=== PATIENT | female | born 1945 | race Asian ===

== ENCOUNTER 2025-05-08 10:48 | Emergency (ER) | payer MEDICARE, MEDICAID, SELFPAY ==
--- NOTE | 2025-05-08 11:07 | EDNOTE_ITS ---
<Statement entered by Mahi Whatley MD - 05/24/25 06:33> I, Mahi Whatley MD, have reviewed the history, exam, and assessment of the patient. I have evaluated the patient independently and agree with the plan of care documented by [ ]. All diagnostic studies were reviewed and discussed. I confirm the diagnosis as documented by the Resident. I was present during the Medical Decision Making for this patient. The patient's plan of care was created between myself and the Resident and consistent with our discussion of the patient's case. ED General RME/HPI General Chief complaint: Hip Injury/Pain Stated complaint: L HIP PAIN S/P FALL 1 WEEK AGO Time Seen by Provider: 05/08/25 11:07 Arrival date/time: 05/08/25 10:48 RME / HPI RME / HPI narrative: 80-year-old female with no relevant past medical history comes into the ED with chief complaint of left hip pain. Patient was accompanied by her daughter stated that the patient usually walks alone from her home to the store multiple times a day, but that around 2 weeks ago she did have a fall in the street and 1 more in the house which she did see as patient landed on her buttocks. Since then patient has been using a cane as it has been more difficult for her to walk due to the pain. Patient has also been walking last instances. Denies any chest pain, nausea, vomiting, changes in bowel movement, burning sensation in urination, or any loss of consciousness. Denies any smoking, drugs, alcohol Related Data Home Medications ?Medication ?Instructions ?Recorded ?Confirmed erythromycin 5 mg/gram (0.5 %) eye 1 appl Right eye VA N PRN ITCHING 05/22/17 ointment #0 ea latanoprost 0.005 % eye drops 1 drp Left eye HS #2.5 m L 05/22/17 (Xalatan) naproxen sodium 220 mg tablet 220 mg PO BIDWM #0 tabs 05/22/17 (Aleve) Previous Rx's ?Medication ?Instructions ?Recorded sulfamethoxazole 800 1 tab PO Q12H #14 tabs 11/04 mg-trimethoprim 160 mg tablet (Bactrim DS) hydrocodone 2.5 mg-acetaminophen 1 tab PO Q8H PRN pain #12 tabs 05/08/25 325 mg tablet Allergies Allergy/AdvReac Type Severity Reaction Status Date / Time NKA* Allergy Uncoded 05/08/25 10:49 Review of Systems Review of Systems Systems Reviewed: All systems reviewed, normal except as documented Past Medical History Social History SMOKING STATUS: Never smoker Travel History EBOLA RISK: No ED Exam Narrative Physical exam: Gen: A&O X 2 (not to time), NAD, frail/thin HEENT: NCAT, EOMI, 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 External ears normal. No rhinorrhea. Moist mucous membranes. R mandibular region mass measuring around 8cm. Neck: Supple, full range of motion, no observable masses, No meningeal sign. Lungs: No Respiratory distress, clear bilateral. CV: RRR, no murmurs. Abdomen: Soft, nondistended, No rebound tenderness. MSK: No joint swelling, no redness, peripheral pulses presents, Pain in L hip with active or passive motion Skin: No rashes, petechiae, lesions. Neuro: No focal neurological deficits appreciated, sensory and motor intact. Psych: Cooperative, appropriate mood and effect. Course Quality Measures none Orders Category Date Time Status CT pelvis wo con Stat Exams 05/08/25 11:55 Completed XR ankle LT 2V Stat Exams 05/08/25 12:17 Completed XR knee LT 3V Stat Exams 05/08/25 12:17 Completed CBC [CBC] Stat Lab 05/08/25 12:50 Completed CMP [Comprehensive Metabolic Panel] Stat Lab 05/08/25 12:50 Completed Morphine Inj Med 05/08/25 12:21 Discontinued 1 mg IM X1 ONE Vital Signs Vital signs: Vital Signs Temperature 98.7 F 05/08/25 11:29 Pulse Rate 88 05/08/25 11:29 Respiratory Rate 16 05/08/25 11:29 Blood Pressure 132/65 H 05/08/25 11:29 Pulse Oximetry (%) 97 05/08/25 11:29 Oxygen Delivery Method Room Air 05/08/25 11:29 Discharge Plan Plan Patient Disposition: HOME (Self Care) Prescriptions/Referrals Prescriptions/Med Rec: New hydrocodone-acetaminophen 2.5-325 mg tablet 1 tab PO Q8H MDD 3 PRN (Reason: pain) Qty: 12 0RF No Action latanoprost [Xalatan] 50 DROP/BTL drops 1 drp Left eye HS Qty: 2.5 erythromycin 1 GM ointment 1 appl Right eye PRN PRN (Reason: ITCHING) Qty: 0 naproxen sodium [Aleve] 220 MG tablet 220 mg PO BIDWM Qty: 0 sulfamethoxazole-trimethoprim [Bactrim DS] 800-160 mg tablet 1 tab PO Q12H Qty: 14 0RF Referrals: Enio Pastor MD [Primary Care Provider] - In 1 week Problem List Clinical Impression: Hip mass, Hip pain Patient/Caregiver Discharge Instructions Other Activity Instructions:: Follow-up with primary care physician within 2 to 3 days Recommend outpatient workup for tumor seen on pelvis CT at the left iliac bone. Would recommend outpatient follow-up with drying can worker/oncologist within the next week for the next course of action of the tumor mass seen in the CT of the pelvis Have prescribed [place] 2.5/325mg every 8 hours as needed for pain for the next 3 to 4 days. Would recommend using a cane to walk while you go and see primary care physician and oncologist. Come back to the ER if symptoms persist or worsen. Education Materials: Understanding the Pain Response, Communicating About Pain, ED Pain, Acute, Uncertain Cause Print Language: Indonesian Stand Alone Forms: Suzie Award Info., Patient Portal Info Letter MDM Narrative MDM hospital course: Patient was seen and evaluated upon arrival by myself. Diagnostic imaging and labs were ordered. Gave 1mg Morphine due to pain. Patient's pelvis CT showed the tumor mass at the left iliac bone with metastatic disease and Xrays did not show fractures or dislocations. Patient's daughter stated that patient was being worked outpatient for a mass that she has on the right submandibular region. Again explained to patient's daughter the need to follow-up outpatient with drying can worker oncologist and and that they would need a referral from the outpatient primary care physician. Patient's daughter understood the plan and agreed. Case disclosed with Attending Dr. Phylicia Dumont PGY2 Disclaimer: Even though this this note was dictated by speech recognition and even though it was carefully revised there may still be minor errors in pulverizing and sifting operator due to voice recognition software. Medication Administration(s) Medication Administration History Discontinued Medications Morphine Sulfate (Morphine Sulf Inj 10 Mg/Ml Vial) 1 mg IM X1 ONE Stop: 05/08/25 12:22 Last Admin: 05/08/25 13:17 Dose: 1 mg Documented By: DO
[2025-05-08 11:29] VITALS: BP 132/65; PULSE 88; RESP 16; TEMP 37.1; O2SAT 97
--- NOTE | 2025-05-08 11:55 | XR_ITS ---
Examination: CT pelvis without intravenous contrast. 2-D sagittal and coronal reconstructions. Date and time of exam:May 07, 2025, 12:57 PM Indications: Patient fell last week with injury to the pelvis, left hip pain. CTDI: vol (mGy) :3.36 DLP: (mGycm) : 93 Technique: Multiple 3 mm axial sections of the pelvis have been obtained with the 64 slice high resolution scanner. 2-D sagittal and coronal reconstructions. Low dose protocols were performed. One or more of the following dose reduction techniques were used; automated exposure control, adjustment of the mA and/or KV according to patient size, use of iterative reconstruction technique. 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
--- NOTE | 2025-05-08 12:17 | XR_ITS ---
Examination: Healed left ankle 2 views Technique : AP lateral left ankle 2 views Date and time: May 08, 2025, 12:32 PM Indications: Patient fell this morning ankle, ankle pain. Findings: No fracture or dislocation. Mild osteopenia. Impression: No fracture or dislocation.
--- NOTE | 2025-05-08 12:17 | XR_ITS ---
Examination: Knee, left 3 views Technique: AP oblique lateral left knee 3 views Date and time: May 08, 2025 1234 hrs. Indications: Patient fell this morning with injury to the knee, knee pain. Findings: Severe osteopenia. No fracture or dislocation. Impression: No fracture or dislocation.
[2025-05-08] MEDS: MORPHINE SULF INJ 10 MG/ML VIAL IM (13:17)
[2025-05-08 13:18] LABS: Basophils # (Auto) 0.0 Thou/mm3 (0.0-0.2); Basophils % (Auto) 0 % (0-2.5); Eosinophils # (Auto) 0.0 Thou/mm3 (0.0-0.5); Eosinophils % (Auto) 0 % (0-10); Hematocrit 32.4 % (36.0-46.0); Hemoglobin 10.8 g/dL (12.0-16.0); Immature Granulocytes Auto 0.04 Thou/mm3 (0.00-0.00); Lymphocytes # (Auto) 1.2 Thou/mm3 (1.0-4.8); Lymphocytes % (Auto) 17 % (10-50); Mean Corpuscular HGB Conc 33.3 g/dl (31.0-37.0); Mean Corpuscular Hemoglobin 26.2 pg (25.0-35.0); Mean Corpuscular Volume 79 fL (80-100); Monocytes # (Auto) 0.9 Thou/mm3 (0.0-0.8); Monocytes % (Auto) 13 % (0-12); Neutrophils # (Auto) 4.9 Thou/mm3 (1.8-7.7); Neutrophils % (Auto) 69 % (37-80); Nucleated Red Blood Cell # 0.00 Thou/mm3 (0.00-0.00); Nucleated Red Blood Cell % 0 /100 WBC (0); Platelet Count 323 Thou/mm3 (140-440); RDW Standard Deviation 45.1 fL (36.4-46.3); Red Blood Count 4.12 Miln/mm3 (4.00-5.20); White Blood Count 7.0 Thou/mm3 (3.6-11.0)
[2025-05-08 13:19] VITALS: BMI 18.1
[2025-05-08 14:05] LABS: Alanine Aminotransferase < 7 U/L (10-49); Albumin, Serum 3.5 gm/dL (3.4-4.8); Albumin/Globulin Ratio 1.3 (1.2-2.2); Alkaline Phosphatase 63 U/L (46-116); Anion Gap 17 (7-16); Aspartate Amino Transferase 25 U/L (0-34); BUN/Creatinine Ratio 23 Ratio (12-20); Bilirubin,Total 1.0 mg/dL (0.3-1.2); Blood Urea Nitrogen 21 mg/dL (9-23); Calcium 9.7 mg/dL (8.3-10.6); Calcium (Corrected) 10.1 mg/dL (8.5-10.1); Carbon Dioxide 22.4 mMol/L (20.0-31.0); Chloride 102 mMol/L (98-107); Creatinine (Component) 0.9 mg/dL (0.6-1.3); Estimated Creatinine Clearance 31.1 mL/min (>60); Globulin 2.7 gm/dL (2.3-3.5); Glucose 90 mg/dL (74-106); Osmolality,Calculated 284 (275-295); Potassium 3.2 mMol/L (3.4-5.1); Sodium 141 mMol/L (136-145); Total Protein 6.2 gm/dL (5.7-8.2); eGFR > 60 See Note
[2025-05-08 14:59] VITALS: BP 128/56; PULSE 75; RESP 13; O2SAT 95
== END 2025-05-08 15:03 | disposition home or self-care (01) ==
PROVIDERS: PCP Family Medicine
DX: S79.912A Unspecified injury of left hip, initial encounter (principal); S89.92XA Unspecified injury of left lower leg, initial encounter; S99.912A Unspecified injury of left ankle, initial encounter; W19.XXXA Unspecified fall, initial encounter; C79.51 Secondary malignant neoplasm of bone
CPT/HCPCS: 36415; 72192; 73562; 73600; 80053; 85025; 96372; 99283; J2270

== ENCOUNTER 2025-05-17 07:26 | Emergency (ER) | payer MEDICARE, MEDICAID, SELFPAY ==
--- NOTE | 2025-05-17 | XR_ITS ---
Examination: MRI thoracic spine, without intravenous contrast. MRI thoracic spine , with intravenous contrast. 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 Images obtained included T2 weighted fat suppressed sagittal sections, TR 3500, TE 46, T2 weighted coronal fat suppressed images, TR 3050, TE 84, T2-weighted transverse fat suppressed images, TR 30-60, TE 63, proton density transverse images, TR 4720, TE 46, and T1 weighted coronal images, TR 560, TE 13. Axial, sagittal and coronal images are obtained post intravenous injection 6 cc gadolinium. Findings: Kyphosis dorsal spine Severe osteopenia. Compression fractures T12 T8 T6, T5 T3, T2, T1 Enhancement on the postcontrast images at these levels The postcontrast images are degraded by patient motion However, enhancing epidural tumor is not demonstrated impinging upon the thoracic cord The fracture at T12 is acute or subacute as there is increased signal in this vertebral body on the precontrast images IMPRESSION: Osseous metastatic disease involving T1, T2, T3, T5, T6, T8, T12 with compression fractures However, no enhancing epidural tumor impinging upon the thoracic cord
[2025-05-17 07:27] VITALS: BMI 15.1
[2025-05-17 07:40] VITALS: BP 96/60; PULSE 68; RESP 18; TEMP 37; O2SAT 94
--- NOTE | 2025-05-17 07:58 | PD.EDRME ---
Rapid Medical Screening Exam RME Arrival date/time: 05/17/25 07:26 80-year-old female presents to the emergency room with a chief complaint of left-sided 10 out of 10 hip pain, decreased appetite, generalized fatigue that is progressively gotten worse. The patient is currently being worked up by her primary care provider for a metastatic mass that was found in her left hip. I have greeted and performed a focused initial assessment of this patient. A comprehensive ED assessment and evaluation of the patient, analysis of all test results, and completion of the medical decision making process will be conducted by additional ED providers. Chief Complaint: Hip Injury/Pain Time Seen by Provider: 05/17/25 07:41 Vital signs: Vital Signs Temperature 98.6 F 05/17/25 07:40 Pulse Rate 68 05/17/25 07:40 Respiratory Rate 18 05/17/25 07:40 Blood Pressure 96/60 05/17/25 07:40 Pulse Oximetry (%) 94 L 05/17/25 07:40 Oxygen Delivery Method Room Air 05/17/25 07:40 Vital signs reviewed by provider: Yes
[2025-05-17 09:10] LABS: Basophils # (Auto) 0.0 Thou/mm3 (0.0-0.2); Basophils % (Auto) 0 % (0-2.5); Eosinophils # (Auto) 0.0 Thou/mm3 (0.0-0.5); Eosinophils % (Auto) 0 % (0-10); Hematocrit 31.8 % (36.0-46.0); Hemoglobin 10.7 g/dL (12.0-16.0); Immature Granulocytes Auto 0.04 Thou/mm3 (0.00-0.00); Lymphocytes # (Auto) 0.5 Thou/mm3 (1.0-4.8); Lymphocytes % (Auto) 7 % (10-50); Mean Corpuscular HGB Conc 33.6 g/dl (31.0-37.0); Mean Corpuscular Hemoglobin 26.4 pg (25.0-35.0); Mean Corpuscular Volume 79 fL (80-100); Monocytes # (Auto) 1.0 Thou/mm3 (0.0-0.8); Monocytes % (Auto) 13 % (0-12); Neutrophils # (Auto) 5.9 Thou/mm3 (1.8-7.7); Neutrophils % (Auto) 79 % (37-80); Nucleated Red Blood Cell # 0.00 Thou/mm3 (0.00-0.00); Nucleated Red Blood Cell % 0 /100 WBC (0); Platelet Count 326 Thou/mm3 (140-440); RDW Standard Deviation 45.1 fL (36.4-46.3); Red Blood Count 4.05 Miln/mm3 (4.00-5.20); White Blood Count 7.5 Thou/mm3 (3.6-11.0)
[2025-05-17 09:16] LABS: Alanine Aminotransferase < 7 U/L (10-49); Albumin, Serum 3.0 gm/dL (3.4-4.8); Albumin/Globulin Ratio 1.0 (1.2-2.2); Alkaline Phosphatase 56 U/L (46-116); Anion Gap 15 (7-16); Aspartate Amino Transferase 22 U/L (0-34); BUN/Creatinine Ratio 16 Ratio (12-20); Bilirubin,Total 0.7 mg/dL (0.3-1.2); Blood Urea Nitrogen 18 mg/dL (9-23); Calcium 9.1 mg/dL (8.3-10.6); Calcium (Corrected) 9.9 mg/dL (8.5-10.1); Carbon Dioxide 24.2 mMol/L (20.0-31.0); Chloride 101 mMol/L (98-107); Creatinine (Component) 1.1 mg/dL (0.6-1.3); Estimated Creatinine Clearance 21.2 mL/min (>60); Globulin 2.9 gm/dL (2.3-3.5); Glucose 87 mg/dL (74-106); Osmolality,Calculated 280 (275-295); Sodium 140 mMol/L (136-145); Total Protein 5.9 gm/dL (5.7-8.2); eGFR 50 See Note
[2025-05-17 09:18] LABS: Potassium 2.5 mMol/L (3.4-5.1)
--- NOTE | 2025-05-17 09:19 | XR_ITS ---
Examination: CT abdomen with intravenous contrast CT pelvis with intravenous contrast 2-D coronal reconstructions 2-D sagittal reconstructions Date and time of exam:July 17, 2025, 1031 hours, comparison May 08, 2025 INDICATIONS: Generalized abdominal pain today. CTDI: vol (mGy) 5.84 DLP: (mGycm) 269 Technique: Multiple axial sections of the abdomen and pelvis have been obtained. 64 slice high-resolution scanner used. 3 mm axial sections have been obtained, post intravenous injection of 60 cc Isovue 370. 2-D sagittal, coronal reconstructions obtained. Low dose protocols were performed. One or more of the following dose reduction techniques were used; automated exposure control, adjustment of the mA and/or KV according to patient size, use of iterative reconstruction technique. Findings: Pneumonia left base with moderate left pleural fluid Mild enlargement cardiac contour. No focal liver or splenic lesions Gallbladder is distended, gallbladder wall appears mildly thickened Multiple areas of edema in both kidneys. Aortic calcification no aneurysmal dilatation. 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 Again noted large soft tissue mass destroying the left iliac bone, soft tissue tumor extending into the pelvis
--- NOTE | 2025-05-17 09:20 | XR_ITS ---
Examination: CT brain head without contrast. 2-D sagittal coronal reconstructions Date and time of exam:May 17, 2025, 1028 hours INDICATIONS: Generalized weakness today Comparison of July 11, 2023 CTDI: vol (mGy):43.7 DLP: (mGycm):756 Technique: Multiple CT axial sections of the brain have been obtained, 5 mm slice thickness. Contrast has not been administered. 2-D sagittal, coronal reconstructions have been obtained Low dose protocols were performed. One or more of the following dose reduction techniques were used; automated exposure control, adjustment of the mA and/or KV according to patient size, use of iterative reconstruction technique. Findings: No significant ventricular enlargement. Intra-axial or extra-axial hemorrhage density is not seen. No mass effect or midline shift Basal cisterns are not remarkable. Fourth ventricle is midline. Cranial vault intact. Impression: Negative for acute hemorrhage, mass effect or midline shift
--- NOTE | 2025-05-17 09:20 | EKG_ITS ---
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
--- NOTE | 2025-05-17 09:22 | PD.EDHIP ---
Lower Extremity Injury RME/HPI General Chief Complaint: Hip Injury/Pain Stated Complaint: L) HIP PAIN Time Seen by Provider: 05/17/25 07:41 Source: family Arrival date/time: 05/17/25 07:26 Mode of arrival: wheelchair Limitations: language barrier (Home Health Specialist used, daughter at bedside, ) RME / HPI RME / HPI Narrative: 05/17/25 07:26 80-year-old female presents to the emergency room with a chief complaint of left-sided 10 out of 10 hip pain, decreased appetite, generalized fatigue that is progressively gotten worse. The patient is currently being worked up by her primary care provider for a metastatic mass that was found in her left hip. I have greeted and performed a focused initial assessment of this patient. A comprehensive ED assessment and evaluation of the patient, analysis of all test results, and completion of the medical decision making process will be conducted by additional ED providers. 9:22a Dr. Branch I spoke with patient's daughter at bedside, states that since the fall patient has been very weak, previously was very active and now does not ambulate very much. Previously ambulated without a cane. Has not had a biopsy of her left hip does not have any medical problems, no medications, no allergies to medications. No recent travel sick contacts. No fever vomiting or abdominal pain patient speaks Laotian, patient. Concented for daughter to be compliance engineer products. Related Data Previous Rx's ?Medication ?Instructions ?Recorded hydrocodone 10 mg-acetaminophen 1 tab PO BID PRN pain #20 tabs 05/23/25 325 mg tablet Allergies Allergy/AdvReac Type Severity Reaction Status Date / Time No Known Allergies Allergy Verified 05/17/25 07:30 Review of Systems Review of Systems Systems Reviewed: All systems reviewed, normal except as documented Past Medical History Past Medical History CARDIAC: Negative Cardiac Disorders or Congestive Heart Failure RESPIRATORY: Negative Chronic Obstructive Pulmonary Disease (COPD) or Asthma GENITOURINARY: Negative Renal Disease ENDOCRINE: Negative Diabetes Mellitus Type 1 or Diabetes Mellitus Type 2 HEMATOLOGIC: Negative Sickle Cell Disease Social History SMOKING STATUS: Former smoker ED Exam General Limitations: Present language barrier (Home Health Specialist used, daughter at bedside, ) General appearance: Present other (Globally weak) Head Head exam: Present atraumatic, normocephalic and normal inspection Eye Eye exam: Present other (Right eye opacified) ENT ENT exam: Present other (Dry mucous membranes) Neck Neck exam: Present normal inspection Chest Chest inspection: Present symmetric chest wall rise Respiratory Respiratory exam: Present normal lung sounds bilaterally; Absent respiratory distress Cardiovascular Cardiovascular exam: Present regular rate and normal rhythm Abdominal Exam Abdominal exam: Present soft; Absent distention, tenderness or guarding Extremities Exam Extremities exam: Present other (Weak in bilateral lower extremities as well as bilateral upper extremities, swelling appreciated at patient's left hip, no surrounding erythema fluctuance or crepitus) Neurological Exam Neurological exam: Present alert Course Quality Measures none Orders Category Date Time Status Bedside COVID-19 Antigen Test NOW Care 05/17/25 09:16 Completed Bedside Influenza A&B Antigen Test NOW Care 05/17/25 09:[address] Screening NOW Care 05/17/25 09:19 Completed EKG (ED ONLY) *Do not use* NOW Care 05/17/25 09:20 Completed Insert [Insert IV] STAT Care 05/17/25 07:57 Completed MRI Screening NOW Care 05/17/25 11:50 Completed MRI Screening NOW Care 05/17/25 17:[address] abdomen pelvis w con Stat Exams 05/17/25 09:[address] head/brain wo con Stat Exams 05/17/25 09:20 Completed EKG (ED Only) Stat Exams 05/17/25 09:20 Draft MR thoracic spine wo/w con Stat Exams 05/17/25 Completed US abdomen limited Stat Exams 05/17/25 11:49 Completed Blood Culture (Lab) Stat Lab 05/17/25 12:05 Completed CBC Stat Lab 05/17/25 08:46 Completed CMP [Comprehensive Metabolic Panel] Stat Lab 05/17/25 08:46 Completed Morphine Inj Med 05/17/25 07:57 Discontinued 2 mg IVP X1 ONE Ondansetron Inj [Zofran Inj] Med 05/17/25 07:57 Discontinued 4 mg IVP X1 ONE Ondansetron Inj [Zofran Inj] Med 05/18/25 01:13 Discontinued 4 mg IVP X1 ONE POTASSIUM CHL 10 mEq IVPB [Kcl Ivpb] Med 05/17/25 11:45 Discontinued 10 meq in 100 ml IV Q1H POTASSIUM CHL 10 mEq IVPB [Kcl Ivpb] Med 05/17/25 20:25 Discontinued 10 meq in 100 ml IV X1 POTASSIUM CHL 10 mEq IVPB [Kcl Ivpb] 100 ml Med 05/17/25 20:25 Discontinued IV Q2HR POTASSIUM CHL 10 mEq IVPB [Kcl Ivpb] 100 ml Med 05/17/25 20:26 Discontinued IV Q2HR POTASSIUM CHL 10% Liq 15 ML Med 05/17/25 14:00 Discontinued 40 meq PO X1 ONE Ringers Lactated 500 ml [Lactated Ringers] 500 ml Med 05/17/25 09:24 Discontinued IV 999 mls/hr cefTRIAXone/D5w 1gm IV premix [Rocephin/D5w 1gm IV Med 05/17/25 11:49 Discontinued premix] 1 gm in 50 ml IV X1 fentaNYL INJ [Sublimaze Inj] Med 05/18/25 01:13 Discontinued 25 mcg IVP X1 ONE Vital Signs Vital signs: Vital Signs Temperature 98.6 F 05/17/25 07:40 Pulse Rate 68 05/17/25 07:40 Respiratory Rate 18 05/17/25 07:40 Blood Pressure 96/60 05/17/25 07:40 Pulse Oximetry (%) 94 L 05/17/25 07:40 Oxygen Delivery Method Room Air 05/17/25 07:40 Pulse ox is 94% on room air which is adequate. Extremity Injury, Lower MDM Narrative MDM Narrative:: Patient is an 80-year-old female is in the emerged from concerns for left hip pain as well as global weakness. Patient with recent diagnosis of metastatic disease on pelvic CT. Vital signs and exam as listed. Concern for urinary tract infection, metabolic disturbance, dehydration, metastatic cancer among others. Ordered labs, CT chest abdomen pelvis as well as CT brain. Labs without leukocytosis, no left shift, hemoglobin is 10.7 this is the patient's baseline electrolytes notable for hypokalemia, potassium 2.5, normal creatinine no transaminitis, CT brain unremarkable, CT abdomen pelvis with distended gallbladder with gallbladder wall thickening. Patient also with bilateral pyelonephritis, also pathologic T12 compression severe, subacute fracture of L2 vertebral body, large soft tissue mass distorting the left iliac bone, soft tissue tumor extending into the pelvis. Updated patient and her daughter given the concern for metastatic cancer. Right upper quadrant ultrasound without evidence of cholecystitis. 1800h: Patient signed out pending MRI. Patient data External records reviewed:: [facility] previous records Clinical information provided by:: patient and family Social determinants that could affect healthcare access:: none (Language, used family's compliance engineer products, patient provided consent) Patient has the following chronic illnesses:: recent diagnosis of metastatic disease on pelvic CT How is presenting disease/condition affected by chronic disease/condition?: exacerbated by Evaluation data The following diagnostics were reviewed and interpreted by me:: lab results, radiology exam(s) and EKG tracing(s) Lab and/or radiology exams considered but not ordered:: None Interpretation Summary: Ordering Physician: Gisselle Branch MD Date of Service: 05/17/25 Procedure(s): CT abdomen pelvis w con Accession Number(s): [id number] cc: Enio Pastor MD; Moiz Fish MD; Gisselle Branch MD~ Examination: CT abdomen with intravenous contrast CT pelvis with intravenous contrast 2-D coronal reconstructions 2-D sagittal reconstructions Date and time of exam:July 17, 2025, 1031 hours, comparison May 08, 2025 INDICATIONS: Generalized abdominal pain today. CTDI: vol (mGy) 5.84 DLP: (mGycm) 269 Technique: Multiple axial sections of the abdomen and pelvis have been obtained. 64 slice high-resolution scanner used. 3 mm axial sections have been obtained, post intravenous injection of 60 cc Isovue 370. 2-D sagittal, coronal reconstructions obtained. Low dose protocols were performed. One or more of the following dose reduction techniques were used; automated exposure control, adjustment of the mA and/or KV according to patient size, use of iterative reconstruction technique. Findings: Pneumonia left base with moderate left pleural fluid Mild enlargement cardiac contour. No focal liver or splenic lesions Gallbladder is distended, gallbladder wall appears mildly thickened Multiple areas of edema in both kidneys. Aortic calcification no aneurysmal dilatation. 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 Again noted large soft tissue mass destroying the left iliac bone, soft tissue tumor extending into the pelvis Dictated By: Moiz Fish MD Signed By: <Electronically signed by Moiz Fish MD in OV> 05/17/25 1138 Ordering Physician: Gisselle Branch MD Date of Service: 05/17/25 Procedure(s): CT head/brain wo con Accession Number(s): [id number] cc: Enio Pastor MD; Moiz Fish MD; Gisselle Branch MD~ Examination: CT brain head without contrast. 2-D sagittal coronal reconstructions Date and time of exam:May 17, 2025, 1028 hours INDICATIONS: Generalized weakness today Comparison of July 11, 2023 CTDI: vol (mGy):43.7 DLP: (mGycm):756 Technique: Multiple CT axial sections of the brain have been obtained, 5 mm slice thickness. Contrast has not been administered. 2-D sagittal, coronal reconstructions have been obtained Low dose protocols were performed. One or more of the following dose reduction techniques were used; automated exposure control, adjustment of the mA and/or KV according to patient size, use of iterative reconstruction technique. Findings: No significant ventricular enlargement. Intra-axial or extra-axial hemorrhage density is not seen. No mass effect or midline shift Basal cisterns are not remarkable. Fourth ventricle is midline. Cranial vault intact. Impression: Negative for acute hemorrhage, mass effect or midline shift Dictated By: Moiz Fish MD Signed By: <Electronically signed by Moiz Fish MD in OV> 05/17/25 1134 Ordering Physician: Gisselle Branch MD Date of Service: 05/17/25 Procedure(s): US abdomen limited Accession Number(s): [id number] cc: Enio Pastor MD; Moiz Fish MD; Gisselle Branch MD~ Examination: Abdomen sonogram, Limited Date and time: May 17, 2025, 1251 hours INDICATIONS: Abdominal pain today Technique: Real-time arroyo scale transabdominal sonographic images of the upper abdomen obtained. Findings: Cholelithiasis, gallbladder wall 0.3 cm no edema. Common bile duct 0.8 cm but no stones Pancreatic and 1.0 cm. 10..8 cm no liver lesions. Normal hepatopedal portal venous flow. Patent IVC. Suspicious for periaortic pericaval lymph nodes IMPRESSION: Cholelithiasis, negative for cholecystitis Dictated By: Moiz Fish MD Signed By: <Electronically signed by Moiz Fish MD in OV> 05/17/25 1350 Medications / Prescriptions Medications or Prescriptions considered but not ordered:: None Medication administrations:: Medication Administration History Discontinued Medications Fentanyl Citrate (Fentanyl Cit Inj 50 Mcg/Ml Amp 2ml) 25 mcg IVP X1 ONE Stop: 05/18/25 01:14 Last Admin: 05/18/25 01:42 Dose: 25 mcg Documented By: MM Lactated Ringer's (Lactated Ringers) 500 mls @ 999 mls/hr IV .Q31M ONE Stop: 05/17/25 09:54 Last Infusion: 05/17/25 10:18 Dose: Infused Documented By: Admin: 05/17/25 09:47 Dose: 999 mls/hr Documented By: ED Potassium Chloride (Kcl Ivpb) 10 meq in 100 mls @ 100 mls/hr IV Q1H GAEL Stop: 05/17/25 13:44 Last Admin: 05/17/25 20:36 Dose: Not Given Documented By: JAIRO Non-Admin Reason: Other, see note Comments: past time to give medication reordered Admin: 05/17/25 20:36 Dose: Not Given Documented By: JAIRO Non-Admin Reason: Other, see note Comments: past time to give medication reordered by Ceftriaxone Sodium/Dextrose (Rocephin/D5w 1gm Iv Premix) 1 gm in 50 mls @ 100 mls/hr IV X1 ONE Stop: 05/17/25 12:18 Last Infusion: 05/17/25 19:00 Dose: Infused Documented By: Admin: 05/17/25 13:59 Dose: 100 mls/hr Documented By: ED Potassium Chloride (Kcl Ivpb) 10 meq in 100 mls @ 100 mls/hr IV X1 ONE Stop: 05/17/25 21:24 Last Infusion: 05/17/25 21:51 Dose: Infused Documented By: Admin: 05/17/25 20:50 Dose: 100 mls/hr Documented By: JAIRO Potassium Chloride (Kcl Ivpb) 100 mls @ 50 mls/hr IV Q2HR GAEL Stop: 05/17/25 23:59 Last Infusion: 05/18/25 01:00 Dose: Infused Documented By: Admin: 05/17/25 22:58 Dose: 50 mls/hr Documented By: Infusion: 05/17/25 22:58 Dose: Infused Documented By: Admin: 05/17/25 21:56 Dose: 50 mls/hr Documented By: JAIRO Potassium Chloride (Kcl Ivpb) 100 mls @ 50 mls/hr IV Q2HR GAEL Stop: 05/17/25 23:59 Last Infusion: 05/18/25 03:58 Dose: Infused Documented By: Admin: 05/18/25 01:45 Dose: 50 mls/hr Documented By: Infusion: 05/18/25 01:45 Dose: Infused Documented By: Admin: 05/18/25 00:39 Dose: 50 mls/hr Documented By: RKISTIN Morphine Sulfate (Morphine Sulf Inj 10 Mg/Ml Vial) 2 mg IVP X1 ONE Stop: 05/17/25 07:58 Last Admin: 05/17/25 09:47 Dose: 2 mg Documented By: ED Ondansetron HCl (Ondansetron Inj 2 Mg/Ml Inj 2 Ml) 4 mg IVP X1 ONE; Protocol Stop: 05/17/25 07:58 Last Admin: 05/17/25 09:44 Dose: 4 mg Documented By: ED Ondansetron HCl (Ondansetron Inj 2 Mg/Ml Inj 2 Ml) 4 mg IVP X1 ONE; Protocol Stop: 05/18/25 01:14 Last Admin: 05/18/25 01:42 Dose: 4 mg Documented By: MM Potassium Chloride (Potassium Chloride 10% 20 Meq/15 Ml Udc) 40 meq PO X1 ONE Stop: 05/17/25 14:01 Last Admin: 05/17/25 14:04 Dose: 40 meq Documented By: ED See above Consultations Consultation(s) initiated? (list below): No Diagnosis Most likely diagnosis given after review of the tests above:: metastatic cancer Admission Indicated Admission indicated?: not indicated Admission Request Was there a request for admission?: No Disposition Plan Disposition Plan: other (specify) Discharge Plan Plan Patient Disposition: HOME (Self Care) Discharge Disposition comment: stable Prescriptions/Referrals Prescriptions/Med Rec: No Action hydrocodone-acetaminophen 10-325 mg tablet 1 tab PO BID MDD 2 PRN (Reason: pain) Qty: 20 0RF Referrals: Enio Pastor MD [Primary Care Provider] - In 1 week Problem List Clinical Impression: Compression fracture of thoracic vertebra, Pelvic mass, Acute hypokalemia Patient/Caregiver Discharge Instructions Discharge Activity: walk with walker only and activity as tolerated Education Materials: Back Fracture (Compression Fracture) Additional Instructions: Follow-up with PMD for referral to oncologist for consideration of possible metastatic neoplastic evaluation and biopsy of pelvic mass. Additionally. Take medications as directed. Follow-up with primary care doctor for repeat serum chemistries in 1 week. Take up to two 500 mg tablets of Tylenol every 6 hours as needed for pain. Return for fever vomiting or worsening illness. Contact PMD for consideration of home health assistance. Print Language: Czech Stand Alone Forms: Suzie Award Info., Patient Portal Info Letter
--- NOTE | 2025-05-17 09:22 | PC.NURSE ---
Pt. here from home to room 9, per pt.'s daughter states pt. fell 3 weeks ago and has left hip pain, pt.'s daughter states pt.was seen here and the left hip is not broken, pt.'s daughter states they found a mass on the left hip. Pt.'s daughter states pt. is in a lot of pain. Pt. resting in bed in room 9, no s/s of distress at this time.
[2025-05-17 09:36] VITALS: BP 100/54; PULSE 71; RESP 16; TEMP 36.3; O2SAT 98
[2025-05-17] MEDS: ONDANSETRON INJ 2 MG/ML INJ 2 ML 4 MG IVP (09:44)
[2025-05-17] MEDS: RINGERS LACTATED 500 ML 500 ML 999 ML IV (09:47)
[2025-05-17] MEDS: MORPHINE SULF INJ 10 MG/ML VIAL 2 MG IVP (09:47)
[2025-05-17 11:06] VITALS: BP 95/54; PULSE 70; RESP 18; TEMP 36.4; O2SAT 96
--- NOTE | 2025-05-17 11:49 | XR_ITS ---
Examination: Abdomen sonogram, Limited Date and time: May 17, 2025, 1251 hours INDICATIONS: Abdominal pain today Technique: Real-time arroyo scale transabdominal sonographic images of the upper abdomen obtained. Findings: Cholelithiasis, gallbladder wall 0.3 cm no edema. Common bile duct 0.8 cm but no stones Pancreatic and 1.0 cm. 10..8 cm no liver lesions. Normal hepatopedal portal venous flow. Patent IVC. Suspicious for periaortic pericaval lymph nodes IMPRESSION: Cholelithiasis, negative for cholecystitis
--- NOTE | 2025-05-17 13:04 | PC.NURSE ---
US bedside doing US of gallbladder.
[2025-05-17] MEDS: cefTRIAXone/D5w 1gm IV premix 1 GM/50 ML BAG IV (13:59)
[2025-05-17] MEDS: POTASSIUM CHLORIDE 10% 20 MEQ/15 ML UDC 40 MEQ PO (14:04)
--- NOTE | 2025-05-17 18:38 | EDNOTE_ITS ---
Emergency Room Addendum <Yumiko Pastor - Last Filed: 05/17/25 23:17> Addendum Narrative: 1800: Care assumed from Dr. Branch, the previous shift emergency physician. Past medical, surgical, social and family history reviewed. Vitals and home medications reviewed. Results and treatment plan discussed. I will assume the care of the patient at this time and will follow the patient, pending MRI. Please refer to the emergency department record for history and examination from initial visit. 80yo female discovered to have a large left iliac mass with bone destruction after having presented with left hip pain. Patient currently presenting due to generalized weakness and progressive inability to ambulate due to lower extremity weakness. Lab markers demonstrate normal WBC count, Hgb 10.7, normal platelet count. Chemistries noted K 2.5 and normal renal function. Patient underwent CT abdomen pelvis demonstrating large left soft tissue mass extending into the pelvis in addition of compression fractures of T12-L2, as well as bilateral acute pyelonephritis and distended gallbladder wall thickening. Given concern for metastatic disease, MRI thoracic spine performed, which demonstrates multiple thoracic compression fractures, severe osteopenia without direct cord involvement. Potassium replaced by oral and IV route. Patient had been ambulating up until 3 weeks ago. No urinary or bowel obstruction. Based on imaging studies, there's no spinal involvement. Recent diagnosis of left pelvic mass without tissue diagnosis. will require further work-up for possible metastatic disease and oncological assessment. Given multiple thoracic compression fractures, may also require a clamshell and orthopedic/neurosurgical evaluation nonemergently given the patient's current neurological status. Case d/w family, who has agreed to manage patient at home and supervise ADLs. Recommend contacting PMD for home assistance and referral for hemon physician for arrangement of tissue biopsy. Precaution instructions issued. Will place on daily potassium supplements with recommended serum chemistries drawn in one week. Dx: multiple thoracic compression fractures, left pelvic mass r/o metastatic neoplasm RADIOLOGY RESULTS: [facility] Report Signed Patient: KEIRA BRUMFIELD. Record#: [id number] Birthdate: 1945 Age/Sex: 80 / F Location: [facility] Attending Dr: Ordering Physician: Gisselle Branch MD Date of Service: 05/17/25 Procedure(s): MR thoracic spine wo/w con Accession Number(s): [id number] cc: Enio Pastor MD; Moiz Fish MD; Gisselle Branch MD~ Examination: MRI thoracic spine, without intravenous contrast. MRI thoracic spine , with intravenous contrast. 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 Images obtained included T2 weighted fat suppressed sagittal sections, TR 3500, TE 46, T2 weighted coronal fat suppressed images, TR 3050, TE 84, T2-weighted transverse fat suppressed images, TR 30-60, TE 63, proton density transverse images, TR 4720, TE 46, and T1 weighted coronal images, TR 560, TE 13. Axial, sagittal and coronal images are obtained post intravenous injection 6 cc gadolinium. Findings: Kyphosis dorsal spine Severe osteopenia. Compression fractures T12 T8 T6, T5 T3, T2, T1 Enhancement on the postcontrast images at these levels The postcontrast images are degraded by patient motion However, enhancing epidural tumor is not demonstrated impinging upon the thoracic cord The fracture at T12 is acute or subacute as there is increased signal in this vertebral body on the precontrast images IMPRESSION: Osseous metastatic disease involving T1, T2, T3, T5, T6, T8, T12 with compression fractures However, no enhancing epidural tumor impinging upon the thoracic cord Dictated By: Moiz Fish MD Signed By: <Electronically signed by Moiz Fish MD in OV> 05/17/25 1856 <Juanacrlos Kurtz, - Last Filed: 05/18/25 20:10> Addendum Narrative: 1800: Care assumed from Dr. Branch, the previous shift emergency physician. Past medical, surgical, social and family history reviewed. Vitals and home medications reviewed. Results and treatment plan discussed. I will assume the care of the patient at this time and will follow the patient, pending MRI. Please refer to the emergency department record for history and examination from initial visit. 80yo female discovered to have a large left iliac mass with bone destruction after having presented with left hip pain. Patient currently presenting due to generalized weakness and progressive inability to ambulate due to lower extremity weakness. Lab markers demonstrate normal WBC count, Hgb 10.7, normal platelet count. Chemistries noted K 2.5 and normal renal function. Patient underwent CT abdomen pelvis demonstrating large left soft tissue mass extending into the pelvis in addition of compression fractures of T12-L2, as well as bilateral acute pyelonephritis and distended gallbladder wall thickening. Given concern for metastatic disease, MRI thoracic spine performed, which demonstrates multiple thoracic compression fractures, severe osteopenia without direct cord involvement. Potassium replaced by oral and IV route. Patient had been ambulating up until 3 weeks ago. No urinary or bowel obstruction. Based on imaging studies, there's no spinal involvement. Recent diagnosis of left pelvic mass without tissue diagnosis. will require further work-up for possible metastatic disease and oncological assessment. Given multiple thoracic compression fractures, may also require a clamshell and orthopedic/neurosurgical evaluation nonemergently given the patient's current neurological status. Case d/w family, who has agreed to manage patient at home and supervise ADLs. Recommend contacting PMD for home assistance and referral for hem/onc physician for arrangement of tissue biopsy. Precaution instructions issued. Will place on daily potassium supplements with recommended serum chemistries drawn in one week. Dx: multiple thoracic compression fractures, left pelvic mass r/o metastatic neoplasm/ Hypokalemia RADIOLOGY RESULTS: [facility] Signed Patient: KEIRA BRUMFIELD. Record#: [id number] Birthdate: 1945 Age/Sex: 80 / F Location: [facility] Attending Dr: Ordering Physician: Gisselle Branch MD Date of Service: 05/17/25 Procedure(s): MR thoracic spine wo/w con Accession Number(s): [id number] cc: Enio Pastor MD; Moiz Fish MD; Gisselle Branch MD~ Examination: MRI thoracic spine, without intravenous contrast. MRI thoracic spine , with intravenous contrast. 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 Images obtained included T2 weighted fat suppressed sagittal sections, TR 3500, TE 46, T2 weighted coronal fat suppressed images, TR 3050, TE 84, T2-weighted transverse fat suppressed images, TR 30-60, TE 63, proton density transverse images, TR 4720, TE 46, and T1 weighted coronal images, TR 560, TE 13. Axial, sagittal and coronal images are obtained post intravenous injection 6 cc gadolinium. Findings: Kyphosis dorsal spine Severe osteopenia. Compression fractures T12 T8 T6, T5 T3, T2, T1 Enhancement on the postcontrast images at these levels The postcontrast images are degraded by patient motion However, enhancing epidural tumor is not demonstrated impinging upon the thoracic cord The fracture at T12 is acute or subacute as there is increased signal in this vertebral body on the precontrast images IMPRESSION: Osseous metastatic disease involving T1, T2, T3, T5, T6, T8, T12 with compression fractures However, no enhancing epidural tumor impinging upon the thoracic cord Dictated By: Moiz iFsh MD Signed By: <Electronically signed by Moiz Fish MD in OV> 05/17/25 7278
[2025-05-17 20:43] VITALS: BP 111/63; PULSE 72; RESP 16; TEMP 36.7; O2SAT 94
[2025-05-17] MEDS: POTASSIUM CHL 10 mEq IVPB 10 MEQ/100 ML BAG 100 MEQ IV (20:50)
[2025-05-17] MEDS: POTASSIUM CHL 10 mEq IVPB 100 ML 50 MEQ IV ×2 (21:56→22:58)
[2025-05-17 22:32] VITALS: BP 108/61; PULSE 76; RESP 15; TEMP 36.6; O2SAT 95
[2025-05-17 23:01] VITALS: BP 102/59; PULSE 73; RESP 15; TEMP 37.1; O2SAT 94
[2025-05-18 00:17] VITALS: BP 113/59; PULSE 81; RESP 15; TEMP 37; O2SAT 96
[2025-05-18] MEDS: POTASSIUM CHL 10 mEq IVPB 100 ML 50 MEQ IV ×2 (00:39→01:45)
[2025-05-18] MEDS: fentaNYL CIT INJ 50 mCg/ML AMP 2ML 25 MCG IVP (01:42)
[2025-05-18] MEDS: ONDANSETRON INJ 2 MG/ML INJ 2 ML 4 MG IVP (01:42)
[2025-05-18 02:00] VITALS: BP 107/60; PULSE 71; RESP 14; TEMP 36.8; O2SAT 95
[2025-05-18 03:59] VITALS: BP 116/84; PULSE 70; RESP 18; TEMP 37; O2SAT 95
== END 2025-05-18 03:50 | disposition home or self-care (01) ==
PROVIDERS: Nurse Practitioner Family; Emergency Provider Emergency Medicine; PCP Family Medicine
DX: M48.54XA Collapsed vertebra, not elsewhere classified, thoracic region, initial encounter for fracture (principal); E87.6 Hypokalemia; R53.83 Other fatigue; N10 Acute pyelonephritis; J18.9 Pneumonia, unspecified organism; K80.20 Calculus of gallbladder without cholecystitis without obstruction; M48.56XA Collapsed vertebra, not elsewhere classified, lumbar region, initial encounter for fracture; C79.51 Secondary malignant neoplasm of bone; N30.90 Cystitis, unspecified without hematuria
CPT/HCPCS: 36415; 70450; 72157; 74177; 76705; 80053; 81001; 85025; 87040; 87400; 87811; 93005; 96361; 96365; 96366; 96375; 96376; 99284; A4649; A9577; J0696; J2270; J2405; J3010; J3480; J7120; Q9967; A9270

== ENCOUNTER 2025-05-23 05:27 | Emergency (ER) | payer MEDICARE, MEDICAID, SELFPAY ==
--- NOTE | 2025-05-23 05:42 | PD.EDRME ---
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 Patient presents to the emergency room today complaining of left-sided body pain.
[2025-05-23 05:44] VITALS: PULSE 96; RESP 20; O2SAT 95
[2025-05-23 05:47] VITALS: BP 155/80; PULSE 96; RESP 20; TEMP 37.3; O2SAT 95
[2025-05-23 05:49] VITALS: BMI 14.6
[2025-05-23 06:05] LABS: Basophils # (Auto) 0.0 Thou/mm3 (0.0-0.2); Basophils % (Auto) 0 % (0-2.5); Eosinophils # (Auto) 0.0 Thou/mm3 (0.0-0.5); Eosinophils % (Auto) 0 % (0-10); Hematocrit 37.5 % (36.0-46.0); Hemoglobin 12.6 g/dL (12.0-16.0); Immature Granulocytes Auto 0.07 Thou/mm3 (0.00-0.00); Lymphocytes # (Auto) 0.9 Thou/mm3 (1.0-4.8); Lymphocytes % (Auto) 9 % (10-50); Mean Corpuscular HGB Conc 33.6 g/dl (31.0-37.0); Mean Corpuscular Hemoglobin 26.4 pg (25.0-35.0); Mean Corpuscular Volume 79 fL (80-100); Monocytes # (Auto) 1.1 Thou/mm3 (0.0-0.8); Monocytes % (Auto) 12 % (0-12); Neutrophils # (Auto) 7.1 Thou/mm3 (1.8-7.7); Neutrophils % (Auto) 77 % (37-80); Nucleated Red Blood Cell # 0.00 Thou/mm3 (0.00-0.00); Nucleated Red Blood Cell % 0 /100 WBC (0); Platelet Count 277 Thou/mm3 (140-440); RDW Standard Deviation 48.8 fL (36.4-46.3); Red Blood Count 4.78 Miln/mm3 (4.00-5.20); White Blood Count 9.2 Thou/mm3 (3.6-11.0)
[2025-05-23 06:40] LABS: Carbon Dioxide 21.5 mMol/L (20.0-31.0); Chloride 101 mMol/L (98-107); Potassium 3.5 mMol/L (3.4-5.1); Sodium 141 mMol/L (136-145)
[2025-05-23 06:41] LABS: Alanine Aminotransferase 9 U/L (10-49); Albumin, Serum 3.3 gm/dL (3.4-4.8); Albumin/Globulin Ratio 1.3 (1.2-2.2); Alkaline Phosphatase 61 U/L (46-116); Anion Gap 19 (7-16); Aspartate Amino Transferase 35 U/L (0-34); BUN/Creatinine Ratio 21 Ratio (12-20); Bilirubin,Total 0.7 mg/dL (0.3-1.2); Blood Urea Nitrogen 19 mg/dL (9-23); Calcium 9.9 mg/dL (8.3-10.6); Calcium (Corrected) 10.5 mg/dL (8.5-10.1); Creatinine (Component) 0.9 mg/dL (0.6-1.3); Estimated Creatinine Clearance 26.0 mL/min (>60); Globulin 2.6 gm/dL (2.3-3.5); Glucose 99 mg/dL (74-106); Magnesium 1.8 mg/dL (1.6-2.6); Osmolality,Calculated 283 (275-295); Total Protein 5.9 gm/dL (5.7-8.2); eGFR > 60 See Note
--- NOTE | 2025-05-23 06:48 | EDNOTE_ITS ---
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 Patient presents to the emergency room today complaining of left-sided body pain. DR. KOTHARI MAIN ED EVALUATION: 80 year old female with history of metastatic disease on pelvic CT from recent visit 1 week ago presents to the ED with complaint of left hip pain today. Reports she has had pain to her hip for several weeks. However, is not manageable at home and are requesting pain control. Denies any new falls or injuries. Denies other associated symptoms or complaints. Daughter mentioned the patient has been referred to oncology for biopsy of the left hip mass. Related Data Home Medications ?Medication ?Instructions ?Recorded ?Confirmed erythromycin 5 mg/gram (0.5 %) eye 1 appl Right eye DC N PRN ITCHING 05/22/17 ointment #0 ea latanoprost 0.005 % eye drops 1 drp Left eye HS #2.5 m L 05/22/17 (Xalatan) naproxen sodium 220 mg tablet 220 mg PO BIDWM #0 tabs 05/22/17 (Aleve) Previous Rx's ?Medication ?Instructions ?Recorded sulfamethoxazole 800 1 tab PO Q12H #14 tabs 11/04 mg-trimethoprim 160 mg tablet (Bactrim DS) hydrocodone 2.5 mg-acetaminophen 1 tab PO Q8H PRN pain #12 tabs 05/08/25 325 mg tablet potassium chloride 15 mEq 15 meq PO QDAY 14 days #14 t abs 05/17/25 tablet,extended release hydrocodone 10 mg-acetaminophen 1 tab PO BID PRN pain #20 tabs 05/23/25 325 mg tablet Allergies Allergy/AdvReac Type Severity Reaction Status Date / Time No Known Allergies Allergy Verified 05/17/25 07:30 Review of Systems Review of Systems Systems Reviewed: All systems reviewed, normal except as documented Past Medical History Past Medical History CARDIAC: Negative Cardiac Disorders or Congestive Heart Failure RESPIRATORY: Negative Chronic Obstructive Pulmonary Disease (COPD) or Asthma GENITOURINARY: Negative Renal Disease ENDOCRINE: Negative Diabetes Mellitus Type 1 or Diabetes Mellitus Type 2 HEMATOLOGIC: Negative Sickle Cell Disease Social History SMOKING STATUS: Former smoker ED Exam General Limitations: Present language barrier General appearance: Present alert and other (thin, frail, citizen of [place] speaking woman ) Head Head exam: Present atraumatic, normocephalic and normal inspection Eye Eye exam: Present normal appearance, PERRL and EOMI ENT ENT exam: Present normal exam, normal oropharynx and mucous membranes moist Neck Neck exam: Present normal inspection, full ROM and trachea midline Chest Chest inspection: Present normal inspection and symmetric chest wall rise Respiratory Respiratory exam: Present normal lung sounds bilaterally Cardiovascular Cardiovascular exam: Present regular rate, normal rhythm and normal heart sounds Abdominal Exam Abdominal exam: Present soft and normal bowel sounds Extremities Exam Extremities exam: Present normal inspection and full ROM Back Exam Back exam: Present normal inspection, full ROM and other (area on the left posterior pelvis that is enlarged, mildly tender, organized hematoma vs bony mass ) Neurological Exam Neurological exam: Present alert (opens eyes, interacts ), oriented X3 and CN II-XII intact Psychiatric Psychiatric exam: Present normal affect and normal mood Skin Skin exam: Present warm, dry, intact and normal color Course Quality Measures none Orders Category Date Time Status CBC Stat Lab 05/23/25 05:50 Completed CMP [Comprehensive Metabolic Panel] Stat Lab 05/23/25 05:50 Completed Magnesium Stat Lab 05/23/25 05:50 Completed Morphine Inj Med 05/23/25 06:43 Discontinued 4 mg IM X1 ONE Ondansetron Inj [Zofran Inj] Med 05/23/25 06:43 Discontinued 4 mg IM X1 ONE Vital Signs Vital signs: Vital Signs Temperature 99.2 F 05/23/25 05:47 Pulse Rate 96 05/23/25 05:47 Respiratory Rate 20 05/23/25 05:47 Blood Pressure 155/80 H 05/23/25 05:47 Pulse Oximetry (%) 95 05/23/25 05:47 Oxygen Delivery Method Room Air 05/23/25 05:47 Pulse ox is 95% on room air which is adequate. Extremity Injury, Lower MDM Narrative MDM Narrative:: Ankita Strauss am scribing for and in the presence of Dr. Kothari. Patient data External records reviewed:: [facility] previous records (I reviewed ED visit on 04/24 ) Clinical information provided by:: patient Social determinants that could affect healthcare access:: none Patient has the following chronic illnesses:: metastatic disease on pelvic CT from recent visit 1 week ago How is presenting disease/condition affected by chronic disease/condition?: exacerbated by Evaluation data The following diagnostics were reviewed and interpreted by me:: lab results Lab and/or radiology exams considered but not ordered:: None Interpretation Summary: CBC and CMP with no acute changes Medications / Prescriptions Medications or Prescriptions considered but not ordered:: None Medication administrations:: Medication Administration History Discontinued Medications Morphine Sulfate (Morphine Sulf Inj 10 Mg/Ml Vial) 4 mg IM X1 ONE Stop: 05/23/25 06:44 Ondansetron HCl (Ondansetron Inj 2 Mg/Ml Inj 2 Ml) 4 mg IM X1 ONE; Protocol Stop: 05/23/25 06:44 See above Consultations Consultation(s) initiated? (list below): No Diagnosis Most likely diagnosis given after review of the tests above:: Pelvic mass Admission Indicated Admission indicated?: not indicated Admission Request Was there a request for admission?: No Disposition Plan Disposition Plan: Discharge Discharge Attestation Discharge Attestation: The patient and all family members were given an opportunity to ask questions and understood the discharge instructions. Discharge instructions specifically effects, indications for sooner follow up or return to the emergency department, and the expected course of current diagnosis. Patient condition: Stable Discharge Plan Plan Patient Disposition: HOME (Self Care) Prescriptions/Referrals Prescriptions/Med Rec: New hydrocodone-acetaminophen 10-325 mg tablet 1 tab PO BID MDD 2 PRN (Reason: pain) Qty: 20 0RF No Action latanoprost [Xalatan] 50 DROP/BTL drops 1 drp Left eye HS Qty: 2.5 erythromycin 1 GM ointment 1 appl Right eye PRN PRN (Reason: ITCHING) Qty: 0 naproxen sodium [Aleve] 220 MG tablet 220 mg PO BIDWM Qty: 0 potassium chloride 15 mEq tablet extended release 15 meq PO QDAY 14 Days Qty: 14 0RF sulfamethoxazole-trimethoprim [Bactrim DS] 800-160 mg tablet 1 tab PO Q12H Qty: 14 0RF hydrocodone-acetaminophen 2.5-325 mg tablet 1 tab PO Q8H MDD 3 PRN (Reason: pain) Qty: 12 0RF Problem List Clinical Impression: Pelvic mass Patient/Caregiver Discharge Instructions Additional Instructions: Follow-up with your providers for the biopsy that is scheduled and also for medications for pain control. Print Language: Somali Stand Alone Forms: Suzie Award Info., Patient Portal Info Letter
[2025-05-23] MEDS: ONDANSETRON INJ 2 MG/ML INJ 2 ML 4 MG IM (07:14)
[2025-05-23] MEDS: MORPHINE SULF INJ 10 MG/ML VIAL 4 MG IM (07:15)
== END 2025-05-23 07:40 | disposition home or self-care (01) ==
LOC: SERX 07:27
PROVIDERS: Emergency Medicine; Emergency Provider Family Medicine; PCP Family Medicine
DX: R19.09 Other intra-abdominal and pelvic swelling, mass and lump (principal)
CPT/HCPCS: 36415; 80053; 83735; 85025; 96372; 99283; J2270; J2405

== ENCOUNTER 2025-06-02 08:55 | Inpatient (IN) | payer MEDICARE, MEDICAID, SELFPAY ==
[2025-06-02] VITALS (12 sets, daily range): BP systolic 112–137; BP diastolic 61–88; PULSE 79–135; RESP 16–24; TEMP 36.6–37.2; O2SAT 94–97; BMI 18.5; BMI 13.6
--- NOTE | 2025-06-02 08:57 | EKG_ITS ---
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
--- NOTE | 2025-06-02 08:57 | EKG_ITS ---
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
--- NOTE | 2025-06-02 09:17 | XR_ITS ---
Examination: AP chest single view Technique one AP portable semiupright chest single view Date and time: June 02, 2025 0923 hours INDICATIONS: Onset atrial fibrillation difficulty breathing today. FINDINGS: Extensive opacity in the left hemithorax with shift of the heart and mediastinum to the right Right lung clear Severe osteopenia IMPRESSION: Recommend CT chest with contrast follow-up to confirm extensive left pleural fluid and exclude left mediastinal tumor
[2025-06-02] MEDS: DILTIAZEM INJ 5 MG/ML VIAL 5 ML IV (09:25)
[2025-06-02 09:36] LABS: Basophils # (Auto) 0.0 Thou/mm3 (0.0-0.2); Basophils % (Auto) 0 % (0-2.5); Eosinophils # (Auto) 1.8 Thou/mm3 (0.0-0.5); Eosinophils % (Auto) 10 % (0-10); Hematocrit 40.1 % (36.0-46.0); Hemoglobin 13.2 g/dL (12.0-16.0); Immature Granulocytes Auto 0.12 Thou/mm3 (0.00-0.00); Lymphocytes # (Auto) 0.5 Thou/mm3 (1.0-4.8); Lymphocytes % (Auto) 3 % (10-50); Mean Corpuscular HGB Conc 32.9 g/dl (31.0-37.0); Mean Corpuscular Hemoglobin 26.8 pg (25.0-35.0); Mean Corpuscular Volume 81 fL (80-100); Monocytes # (Auto) 1.4 Thou/mm3 (0.0-0.8); Monocytes % (Auto) 8 % (0-12); Neutrophils # (Auto) 13.0 Thou/mm3 (1.8-7.7); Neutrophils % (Auto) 77 % (37-80); Nucleated Red Blood Cell # 0.00 Thou/mm3 (0.00-0.00); Nucleated Red Blood Cell % 0 /100 WBC (0); Platelet Count 225 Thou/mm3 (140-440); RDW Standard Deviation 52.9 fL (36.4-46.3); Red Blood Count 4.93 Miln/mm3 (4.00-5.20); White Blood Count 16.9 Thou/mm3 (3.6-11.0)
[2025-06-02 09:38] LABS: Lactate (Lactic Acid) 4.3 mMol/L (0.4-2.0)
--- NOTE | 2025-06-02 09:42 | XR_ITS ---
Examination: CTA chest with intravenous contrast 2-D reconstructions 3-D reconstructions, vascular Date and time of exam: June 02, 2025, 1124 hours INDICATIONS: Cardiac palpitations shortness of breath today CTDI: vol (mGy) 5.86 DLP: (mGycm) 105 Technique: Multiple axial sections of the thorax have been obtained. 3 mm slice thickness, from below the hemidiaphragms to above the apices of the lungs. Mediastinal and lung density settings have been obtained. 2-D sagittal and coronal reconstructions. 3-D angiographic renderings, 3-D volume renderings, 3D post processing, vascular maximum intensity projections obtained. Contrast administered is 80 cc Isovue-370. Low dose protocols were performed. One or more of the following dose reduction techniques were used; automated exposure control, adjustment of the mA and/or KV according to patient size, use of iterative reconstruction technique. Findings: Partial visualization 5 cm mass lateral on the right to the larynx No thoracic aortic aneurysmal dilatation Extensive mediastinal mass, anterior, tracheobronchial, subcarinal, aortopulmonary window which is surrounding and compressing the left main pulmonary artery No pulmonary artery filling defects Mild enlargement cardiac contour Large left pleural effusion with significant atelectasis left lung Subtle right lung pneumonia, most prominent in the anterior segment right upper lobe No visualized liver or splenic lesion Gastric mucosa is thickened No definite gallstones No pancreatic mass No hydronephrosis Severe osteopenia with severe pathologic appearing compression fracture T12 IMPRESSION: Partial visualization 5 cm mass lateral the right side in the neck adjacent to the larynx, recommend CT soft tissue neck post intravenous contrast follow-up 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
--- NOTE | 2025-06-02 09:55 | PD.EDARRY ---
ED Arrhythmia Palp. 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 Patient is scheduled for biopsy with interventional radiology today when she had an episode of A-fib RVR and biopsy was canceled, family member at bedside assisted in providing history as patient is [place]ian/Namibian speaking, patient lying comfortably in bed. 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 They deny any history of A-fib, CHF, hypertension, hyperlipidemia, diabetes mellitus and stroke. 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 Related Data Home Medications ?Medication ?Instructions ?Recorded ?Confirmed erythromycin 5 mg/gram (0.5 %) eye 1 appl Right eye PRN PRN ITCHING 05/22/17 ointment #0 ea latanoprost 0.005 % eye drops 1 drp Left eye HS #2.5 mL 05/22/17 (Xalatan) naproxen sodium 220 mg tablet 220 mg PO BIDWM #0 tabs 05/22/17 (Aleve) Previous Rx's ?Medication ?Instructions ?Recorded sulfamethoxazole 800 1 tab PO Q12H #14 tabs 11/04/22 mg-trimethoprim 160 mg tablet (Bactrim DS) hydrocodone 2.5 mg-acetaminophen 1 tab PO Q8H PRN pain #12 tabs 05/08/25 325 mg tablet hydrocodone 10 mg-acetaminophen 1 tab PO BID PRN pain #20 tabs 05/23/25 325 mg tablet Allergies Allergy/AdvReac Type Severity Reaction Status Date / Time No Known Allergies Allergy Verified 05/17/25 07:30 Review of Systems Review of Systems Systems Reviewed: All systems reviewed, normal except as documented Past Medical History Past Medical History CARDIAC: Negative Cardiac Disorders or Congestive Heart Failure RESPIRATORY: Negative Chronic Obstructive Pulmonary Disease (COPD) or Asthma GENITOURINARY: Negative Renal Disease ENDOCRINE: Negative Diabetes Mellitus Type 1 or Diabetes Mellitus Type 2 HEMATOLOGIC: Negative Sickle Cell Disease Social History SMOKING STATUS: Former smoker ED Exam Narrative Physical exam: Gen: A&O X 2 (not to time), NAD, frail/thin HEENT: NCAT, EOMI, 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 External ears normal. No rhinorrhea. Moist mucous membranes. R mandibular region mass measuring around 8cm. Neck: Supple, full range of motion, no observable masses, No meningeal sign, mass right neck Lungs: No Respiratory distress, clear bilateral. CV: RRR, no murmurs. Abdomen: Soft, nondistended, No rebound tenderness. MSK: No joint swelling, no redness, peripheral pulses presents, Pain in L hip with active or passive motion Skin: No rashes, petechiae, lesions. Neuro: No focal neurological deficits appreciated, sensory and motor intact. Psych: Cooperative, appropriate mood and effect. Course Course Course Narrative: Patient presented from IR with A-fib RVR, heart rate in 140s was given Cardizem 5 mg IV x 1 blood pressure permissible. Workup ordered chest x-ray showed extensive opacity left hemithorax with shift to heart and mediastinum there is suspicion of large pleural effusion, patient hemodynamically stable heart rate improved with Cardizem. CBC remarkable for white count 16.9, neutrophilia appreciated, anion gap 18, lactate elevated at 4.3, BUN 37, creatinine 1.4, GFR 38, AST 61, troponin 0.08, albumin 3.2, Pro-[place] 1.03, TSH 9.17, free T40.73. Urine analysis shows rare bacteria leukocyte esterase negative, low suspicion of UTI. Sepsis alert initiated in the emergency department at 1128 due to tachycardia and elevated white cell count suspected source pulmonary patient given cefepime and doxycycline, patient's weight around 30 kg, was given 1 L LR bolus and was started on maintenance fluids. CTA pending Discussed with hospitalist team, hospitalist team agrees to admit patient. Quality Measures Current suspected stage: severe sepsis Possible source: pulmonary Blood cultures ordered: yes Antibiotic ordered: Yes Pertinent labs: 06/02/25 06/02/25 09:21 09:47 Lactic Acid 4.3 H* mMol/L (0.4-2.0) Procalcitonin Cancelled 1.03 H ng/ml (0.0-0.49) sepsis Orders Category Date Time Status CT Screening NOW Care 06/02/25 09:[address] Screening X1 Care 06/02/25 09:42 Active [place] [employer]ck[employer] Q4H START 00 Care 06/02/25 09:20 Active Continuous Pulse Oximetry NOW Care 06/02/25 09:20 Completed EKG (ED ONLY) *Do not use* NOW Care 06/02/25 08:57 Completed Insert IV NOW Care 06/02/25 09:[address] angio chest Stat Exams 06/02/25 09:42 Ordered CXRP [XR chest 1V portable] Stat Exams 06/02/25 09:17 Taken EKG (ED Only) Stat Exams 06/02/25 08:57 Draft EKG (ED Only) Urgent Exams 06/02/25 08:57 Draft BNP [B-Type Natriuretic Peptide] Stat Lab 06/02/25 09:31 Ordered CBC Stat Lab 06/02/25 09:21 Completed CMP [Comprehensive Metabolic Panel] Stat Lab 06/02/25 09:21 Received Free T4 (Free Thyroxine) Stat Lab 06/02/25 09:30 Ordered INR [Prothrombin Time with INR] Stat Lab 06/02/25 09:29 Ordered Lactate (Lactic Acid) Stat Lab 06/02/25 09:21 Results Mag [Magnesium] Stat Lab 06/02/25 09:21 Received PTT [Partial Thromboplastin Time] Stat Lab 06/02/25 09:29 Ordered Phosphorous Stat Lab 06/02/25 09:21 Received Procalcitonin Stat Lab 06/02/25 09:21 Received TSH [Thyroid Stimulating Hormone] Stat Lab 06/02/25 09:30 Ordered Troponin I Stat Lab 06/02/25 09:30 Ordered Urinalysis, C/S if Indicated Stat Lab 06/02/25 09:17 Ordered Diltiazem Inj [Cardizem Inj] Med 06/02/25 09:16 Discontinued 5 mg IV X1 ONE Ringers Lactated 1000 ml [Lactated Ringers] 1,000 ml Med 06/02/25 09:39 Active IV 999 mls/hr Vital Signs Vital signs: Vital Signs Temperature 98.4 F 06/02/25 09:08 Pulse Rate 135 H 06/02/25 09:08 Respiratory Rate 18 06/02/25 09:08 Blood Pressure 113/88 H 06/02/25 09:08 Pulse Oximetry (%) 96 06/02/25 09:08 Oxygen Delivery Method Room Air 06/02/25 09:08 Arrhythmia/Palpitations MDM Narrative MDM Narrative:: #New onset A-fib RVR #Suspicion of severe sepsis #Secondary to pulmonary source, pneumonia #Suspicion of parapneumonic effusion #Acute kidney injury #Failure to thrive #Severe cachexia and protein calorie malnutrition #Lactic acidosis #NSTEMI type I versus type II likely type II #Hypothyroidism Patient presented from IR with A-fib RVR, heart rate in 140s was given Cardizem 5 mg IV x 1 blood pressure permissible. Workup ordered chest x-ray showed extensive opacity left hemithorax with shift to heart and mediastinum there is suspicion of large pleural effusion, patient hemodynamically stable heart rate improved with Cardizem. CBC remarkable for white count 16.9, neutrophilia appreciated, anion gap 18, lactate elevated at 4.3, BUN 37, creatinine 1.4, GFR 38, AST 61, troponin 0.08, albumin 3.2, Pro-[place] 1.03, TSH 9.17, free T40.73. Urine analysis shows rare bacteria leukocyte esterase negative, low suspicion of UTI. Sepsis alert initiated in the emergency department at 1128 due to tachycardia and elevated white cell count suspected source pulmonary patient given cefepime and doxycycline, patient's weight around 30 kg, was given 1 L LR bolus and was started on maintenance fluids. CTA pending Discussed with hospitalist team, hospitalist team agrees to admit patient. Case discussed with Attending Physician Dr. Paco Valverde MD Internal Medicine PGY-2 Disclaimer: This note was dictated by speech recognition. Minor errors in laborer wharf may be present due to voice recognition software. 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 Urine analysis shows rare bacteria leukocyte esterase negative, low suspicion of UTI. Chest x-ray showed extensive opacity left hemithorax with shift to heart and mediastinum there is suspicion of large pleural effusion, ordered CTA which is pending EKG done at 9 AM showed sinus rhythm, EKG at 9:03 shows absent P waves, irregularities noted likely consistent with A-fib RVR Medications / Prescriptions Medications or Prescriptions considered but not ordered:: None Medication administrations:: Medication Administration History Lactated Ringer's (Lactated Ringers) 1,000 mls @ 999 mls/hr IV .Q1H1M ONE Stop: 06/02/25 10:39 Discontinued Medications Diltiazem HCl (Diltiazem Inj 5 Mg/Ml Vial 5 Ml) 5 mg IV X1 ONE Stop: 06/02/25 09:17 Last Admin: 06/02/25 09:25 Dose: 5 mg Documented By: BY Consultations Consultation(s) initiated? (list below): No Diagnosis Differential diagnosis arrhythmia/palpitations: sinus tachycardia, artial fibrillation and artial flutter Most likely diagnosis given after review of the tests above:: Atrial fibrillation Admission Indicated Admission indicated?: indicated Explain why admission is indicated or not indicated:: Patient needs further IR intervention for pleural effusion, likely chest tube placement, IV antibiotics and management of sepsis workup. Patient will also benefit from a biopsy if obtained in house. Admission Request Was there a request for admission?: Yes Admission Attestation Admission request attestation: Discussed case with [] from Hospitalist service regarding admission. Discussed patients ED course, exam findings, labs, and radiology results. The Hospitalist [agrees,declines] to accept the patient for admission. Disposition Plan Disposition Plan: Admit Discharge Plan Plan Patient Disposition: Admit Acute Care w/in Hospital Problem List Clinical Impression: Pleural effusion MD Attestation MD Attestation I, Dr. Antonio, have reviewed the history, exam, and assessment of the patient. I have evaluated the patient independently and agree with the plan of care documented by Dr. Valverde. All diagnostic studies were reviewed and discussed. I confirm the diagnosis as documented by the Resident. I was present during the Medical Decision Making for this patient. The patient's plan of care was created between myself and the Resident and consistent with our discussion of the patient's case.
[2025-06-02] MEDS: RINGERS LACTATED 1000 ML 1,000 ML 999 ML IV (09:56)
--- NOTE | 2025-06-02 09:59 | PC.NURSE ---
SEPSIS ALERT INITIATED PER DR NAIR
[2025-06-02 10:17] LABS: Collection Type, Urine Clean Catch
[2025-06-02 10:21] LABS: Bacteria,Urine Rare; Bilirubin,Urine Negative (Negative); Blood,Urine Negative (Negative); Clarity,Urine Clear (Clear/Hazy); Color,Urine Yellow (Lt Yel-Yel); Culture Indicated,Urine Not Indicated; Glucose, Urine Negative (Negative); Hyaline Casts,Urine < 1 /hpf (0-1); Ketones,Urine 1+ (Negative); Leukocyte Esterase,Urine Negative (Negative); Nitrite,Urine Negative (Negative); PH,Urine 5.5 (5.0-7.0); Protein,Urine 1+ (Neg - Trace); RBC,Urine 1 /hpf (0-3); Specific Gravity,Urine 1.022 (1.001-1.035); Squamous Epithelial Cell,Urine 4 /hpf (0-5); Urobilinogen,Urine 2.0 mg/dL (0.0-1.0); WBC,Urine 2 /hpf (0-5)
[2025-06-02 10:23] LABS: INR 0.9 (0.9-1.3); Partial Thromboplastin Time 23.7 Seconds (22.0-36.0); Prothrombin Time 10.3 Seconds (9.0-12.2)
[2025-06-02] MEDS: CEFEPIME INJ 2 GM in SODIUM CHLORIDE 0.9% (Popper) 50 ML IV (10:23)
[2025-06-02 10:28] LABS: B-Type Natriuretic Peptide 100 pg/mL (0-100)
[2025-06-02] MEDS: DOXYCYCLINE INJ 100 MG in SODIUM CHLORIDE 0.9% (POP) 100 ML IV (10:58)
[2025-06-02 11:03] LABS: Alanine Aminotransferase 16 U/L (10-49); Albumin, Serum 3.2 gm/dL (3.4-4.8); Albumin/Globulin Ratio 1.2 (1.2-2.2); Alkaline Phosphatase 84 U/L (46-116); Anion Gap 18 (7-16); Aspartate Amino Transferase 61 U/L (0-34); BUN/Creatinine Ratio 26 Ratio (12-20); Bilirubin,Total 1.1 mg/dL (0.3-1.2); Blood Urea Nitrogen 37 mg/dL (9-23); Calcium 9.4 mg/dL (8.3-10.6); Calcium (Corrected) 10.0 mg/dL (8.5-10.1); Carbon Dioxide 24.4 mMol/L (20.0-31.0); Chloride 100 mMol/L (98-107); Creatinine (Component) 1.4 mg/dL (0.6-1.3); Free T4 (Free Thyroxine) 0.73 ng/dL (0.89-1.76); Globulin 2.7 gm/dL (2.3-3.5); Glucose 104 mg/dL (74-106); Magnesium 2.6 mg/dL (1.6-2.6); Osmolality,Calculated 291 (275-295); Phosphorous 4.3 mg/dL (2.4-5.1); Potassium 4.8 mMol/L (3.4-5.1); Sodium 142 mMol/L (136-145); Thyroid Stimulating Hormone 9.17 uIU/mL (0.55-4.78); Total Protein 5.9 gm/dL (5.7-8.2); eGFR 38 See Note
[2025-06-02 11:04] LABS: Troponin I 0.080 ng/mL (0.0-0.045)
[2025-06-02 11:09] LABS: Procalcitonin 1.03 ng/ml (0.0-0.49)
[2025-06-02] MEDS: RINGERS LACTATED 1000 ML 1,000 ML 70 ML IV (11:46)
[2025-06-02 12:25] LABS: Reflex Lactate? Y
[2025-06-02 12:51] LABS: Lactic Acid, 3 HR 3.2 mMol/L (0.4-2.0)
--- NOTE | 2025-06-02 13:35 | PC.NURSE ---
oral care provided
[2025-06-02] MEDS: MORPHINE SULF INJ 4 MG/ML VIAL 2 MG IV (13:48)
--- NOTE | 2025-06-02 14:33 | PD.RESHP ---
Documentation for date of: 06/02/25 HPI History of Present Illness Chief complaint: Abnormal [place] Rhythm History of present illness: This is an 80 yof with a prior pmh of glaucoma, cataracts, and a recently discovered lytic left iliac lesion who presented to the ED with in a-fib that was discovered when she went into interventional radiology for a biopsy. The patient speaks Brand[place] and history was gathered by her daugter at bedside. The patient was being worked up for a large lytic lesion in the left pelvis, and a neck mass by her PCP. Over the past two months, patient's daughter reports the patient has eaten very little and has no appetite. She has also been losing weight. She denies fever, chest pain, shortness of breath, cough, abdominal pain, dysuria, constipation, or diarrhea. She endorses left hip pain. Medical History -Cataracts -Glaucoma -Blindness in right eye -Left iliac lytic mass lesion -Pathologic compression fracture of T12 -Neck mass Surgical History - Cataract Surgery Social History - Lives at home with daughter and grandchildren - Used to walk around independently prior to her severe hip pain - Remote history of smoking, quit 10 years ago. ED Course - Patient presented in A-fib with RVR in the 140s, BP 113/88, T 98.4, RR 18, O2 96% RA. - Patient was given diltiazem 5 mg IV x 1 and heartrate improved. -Workup ordered chest x-ray showed extensive opacity left hemithorax with shift to heart and mediastinum there is suspicion of large pleural effusion, patient remained hemodynamically stable. - CBC remarkable for white count 16.9, with neutrophilia appreciated, anion gap 18, lactate elevated at 4.3, BUN 37, creatinine 1.4, GFR 38, AST 61, troponin 0.08, albumin 3.2, Pro-[place] 1.03, TSH 9.17, free T40.73. Urine analysis shows rare bacteria leukocyte esterase negative. -Sepsis alert initiated in the emergency department at 1128 due to tachycardia and elevated white cell count suspected source pulmonary patient given cefepime and doxycycline, patient's weight around 30 kg, was given 1 L LR bolus and was started on maintenance fluids. - Hospitalist Team A consulted, CTA was still pending at this time. Review of Systems Review of Systems Systems Reviewed: All systems reviewed, normal except as documented Narrative Review of Systems: See HPI. Exam Vital Signs Temp Pulse Resp BP Pulse Ox O2 Del Method 98.4 F 85 18 122/68 95 Room Air 06/02/25 09:08 06/02/25 13:11 06/02/25 13:11 06/02/25 13:11 06/02/25 13:11 06/02/25 13:11 Narrative Exam General: This is an elderly, frail, cachectic appearing female in no acute distress. HEENT: Right eye with opacification of the cornea. Left pupil responsive to light. Dry oral mucosa. Poor dentition with halitosis. There is white, thick film on the left side of the tongue that scrapes off easily without bleeding. There is also a large mass along the rightmost aspect of the submental region, bordering on the upper neck. This is firm but somewhat mobile. It is not painful. Cardiovascular: Normal S1 and S2. regular rate, somewhat irregular rhythm. No murmur appreciated Respiratory: Lung sounds are absent or very quite in the left lower lobe. Abdomen: Soft, nontender, not distended, Skin: Dry, no rashes or bruising Musculoskeletal: Non edematous lower extremities. 2+ bilateral pedal and radial pulses. Results: Labs 06/03/25 05:30 06/03/25 05:30 Labs: Short CBC 06/02/25 Range/Units 09:21 WBC 16.9 H (3.6-11.0) Thou/mm3 Hgb 13.2 (12.0-16.0) g/dL Hct 40.1 (36.0-46.0) % Plt Count 225 D (140-440) Thou/mm3 BMP 06/02/25 06/02/25 09:21 09:47 Sodium Cancelled 142 Potassium Cancelled 4.8 Chloride Cancelled 100 Carbon Dioxide Cancelled 24.4 BUN Cancelled 37 H Creatinine Cancelled 1.4 H Glucose Cancelled 104 Calcium Cancelled 9.4 Cardiac Enzymes 06/02/25 Range/Units 09:47 Troponin I 0.080 H* (0.0-0.045) ng/mL Liver Function 06/02/25 06/02/25 Range/Units 09:21 09:47 Total Bilirubin Cancelled 1.1 AST Cancelled 61 H ALT Cancelled 16 Alkaline Phosphatase Cancelled 84 Albumin Cancelled 3.2 L Urine 06/02/25 Range/Units 10:10 Urine Color Yellow (Lt Yel-Yel) Urine Clarity Clear (Clear/Hazy) Urine pH 5.5 (5.0-7.0) Ur Specific [place] 1.022 (1.001-1.035) Urine Protein 1+ A (Neg - Trace) Urine Glucose (UA) Negative (Negative) Imaging and Cardiology CT scan - chest: Status: image reviewed by me (Report reviewed by me. ) Quality Measures Quality Measures sepsis Current suspected stage: sepsis Possible source: pulmonary Blood cultures ordered: yes Antibiotic ordered: Yes Advance care planning discussed with:: child Medications Home Medications and Allergies Allergies Allergy/AdvReac Type Severity Reaction Status Date / Time No Known Allergies Allergy Verified 05/17/25 07:30 Visit Medications Lactated Ringer's (Lactated Ringers) 1,000 mls @ 70 mls/hr IV .[id number] [facility] Stop: 06/03/25 01:23 Last Admin: 06/02/25 11:46 Dose: 70 mls/hr Ceftriaxone Sodium/Dextrose (Rocephin/D5w 1gm Iv Premix) 1 gm in 50 mls @ 100 mls/hr IV QDAY [facility] Stop: 06/09/25 14:26 Discontinued Medications Diltiazem HCl (Diltiazem Inj 5 Mg/Ml Vial 5 Ml) 5 mg IV X1 ONE Stop: 06/02/25 09:17 Last Admin: 06/02/25 09:25 Dose: 5 mg Lactated Ringer's (Lactated Ringers) 1,000 mls @ 999 mls/hr IV .Q1H1M ONE Stop: 06/02/25 10:39 Last Infusion: 06/02/25 11:02 Dose: Infused Cefepime HCl 2 gm/ Sodium (Chloride) 50 mls @ 100 mls/hr IV X1 ONE Stop: 06/02/25 10:31 Last Infusion: 06/02/25 10:53 Dose: Infused Doxycycline Hyclate 100 mg/ (Sodium Chloride) 100 mls @ 100 mls/hr IV X1 ONE Stop: 06/02/25 11:01 Last Infusion: 06/02/25 11:58 Dose: Infused Morphine Sulfate (Morphine Sulf Inj 4 Mg/Ml Vial) 2 mg IV X1 ONE Stop: 06/02/25 13:33 Last Admin: 06/02/25 13:48 Dose: 2 mg Assessment & Plan Plan This is a 80 yof a recent history of weight loss, anorexia, and is being worked up for a left lytic iliac mass who presents to the ED from IR in a-fib with RVR. Patient was found to have a large left lung opacification. Admitted for treatment of pleural effusion with thoracentesis. Pleural effusion is likely secondary to malignancy. # Likely metastatic disease, unknown primary source of malignancy at this time #Mediastinal mass #Left pleural effusion #Anorexia #Malnutrition #right neck mass Patient has been having weight loss, anorexia, has multiple masses throughout her body. CXR demonstrated a large opacification of the left lung with rightward mediastinal shift. CTA demonstrated a large mediastinal mass compressing the left pulmonary artery. Patient remains hemodynamically stable, still saturating well on room air, this is most likely a chronic process that is compensated. Biopsy was unable to be completed today due to her new a-fib. See below. Her high lactate is likely secondary to her malignancy as well. Differential includes septic shock from pneumonia but is less likely given her hemodynamic stability. See below. -Consulted pulmonology appreciate recommendations. -Diagnostic thoracentesis -Send for pleural LDH, cell count, glucose, total protein, and amylase. -Monitor O2 saturation and respiratory status. -Will revisit the possibility of biopsy tomorrow. #A-fib with RVR?resolved, likely paroxysmal Patient has no history of a-fib in the past. Newly diagnosed today. She has multiple possible causes for her a-fib today, including malignancy or pneumonia. Responded well to diltiazem 5 mg x1. Troponin was elevated at 0.08, likely secondary to demand. Rate was controlled at the time of exam. [id number] demonstrates 4.6% risk of stroke/TIA/systemic embolism per year and HAS-BLED demonstrated 3.4% risk of bleeding. Patient is likely hypercoagulable due to extensive malignancy. - Moniter on tele. - trend troponin - If the heart rate climbs, will consider addition of metoprolol. - Holding anticoagulation for now due to thoracentesis today. Will consider heparin for anticoagulation tomorrow. #FANY Baseline Cr around 1.0, 1.4 today with BUN of 37. Likely prerenal from perpetual dehydration and poor oral intake. -avoid nephrotoxic agents -mIVF - renally dosed medications -daily CMP #Pneumonia Patient had elevated white count of 16 and procal of 1.03. Right sided pneumonia seen on CT. - Ceftriaxone started 06/02 - Monitor Respiratory and O2 status, currently on RA and satting well. #Abnormal thyroid studies Most likely euthyroid sick syndrome as this is a new finding. Patient does not have a history of thyroid disease and thyroid exam was unremarkable. - moniter for now, track vitals - may recheck thyroid function tests in a couple days. Attending Provider Attestation/Addendum I have discussed and was present for the essential components of the history, physical examination, diagnosis, and treatment plan with the resident. I agree with the patient's care as documented by the resident and amended herein by me. Bebeto Cuevas DO. Although this document has been carefully reviewed, there may still be some phonetic and other typographical errors. These errors are purely grammatical due to imperfections in the software program and should not be construed in any way to compromise the substance of the patient's medical care during this visit.
[2025-06-02] MEDS: cefTRIAXone/D5w 1gm IV premix 1 GM/50 ML BAG IV (14:58)
--- NOTE | 2025-06-02 16:52 | PC.NURSE ---
mds at bedside , patient is having a chest tube placed
--- NOTE | 2025-06-02 17:02 | PC.NURSE ---
procedure to begin by providers for chest tube, patient is sitting up at the side of the bed, per MD consent has been obtained, treatment started
--- NOTE | 2025-06-02 17:54 | XR_ITS ---
Examination: AP chest single view Technique: AP semiupright portable chest single view Date and time: June 02, 2025, 1815 hrs., Comparison 06/02/2025. Indications: Large pulmonary mass left lung post thoracentesis today. Findings: Left pneumothorax, 60% Heart and trachea and mediastinum are shifted to the right Large pulmonary mass left upper lobe Severe osteopenia Impression: Left pneumothorax, at least 60%, trachea and mediastinum are shifted to the right
[2025-06-02 17:59] LABS: Troponin I 0.073 ng/mL (0.0-0.045)
--- NOTE | 2025-06-02 18:17 | PC.NURSE ---
specimen fluid from chest drainage sent to the lab per resident
[2025-06-02 18:41] LABS: Pleural Fluid Appearance Hazy; Pleural Fluid Color Yellow
--- NOTE | 2025-06-02 18:52 | ESOP_ITS ---
PROCEDURES: Procedure Date / Time 06/02/25 980 Procedure Narrative Procedure Narrative: Attending Attestation: I was present for entire procedure. Patient tolerated procedure well with no immediate complications. No significant blood loss. Patient with loculated effusion. Post procedure chest film with pneumothorax en vacuou. Serial films to be followed overnight. Thoracentesis Indication(s): other (Assess lung malignancy ) Informed consent obtained from: surrogate (Daughter, KEVIN BRUMFIELD) Time out done, and the following verified: correct patient, side and site, procedure, patient position and implants and/or equipment Ultrasound used: Yes Procedure location: lt. post pleual space Amount pleural fluid removed (ml): 1,000 EBL(ml): 3 Procedure comment: A time out was performed and the chest x-ray was reviewed, the left side was confirmed and marked. My hands were washed immediately prior to the procedure. I wore a surgical cap, mask with protective eyewear, sterile gown and sterile gloves throughout the procedure. The patient was prepped and draped in a sterile manner using chlorhexidine scrub after the appropriate level was percussed and confirmed by ultrasound. 1% lidocaine was used to anesthesize the skin, subcutaneous tissue, superior aspect of the rib periosteum and parietal pleura. A finder needle was then introduced over the superior aspect of the rib to locate the pleural fluid; light-yellow colored fluid was aspirated at a depth of approximately 5 cm. A 10-blade scalpel was used to del the skin at the insertion site. The [id number] needle was then introduced through the skin incision into the pleural space using negative aspiration pressure and the red colormetric indicator to confirm appropriate positioning of the needle. The thoracentesis catheter was then threaded without difficulty. 1000 ml of light- yellow colored fluid was removed without difficulty. The catheter was then removed. No immediate complications were noted during the procedure. A post- procedure chest x-ray is pending at the time of this note. The fluid will be sent for studies. Estimated blood loss is 5mL. Patient's procedure was done with the assistance of my attending, Dr. Baker. Suni Talbert, PGY-3
[2025-06-02 18:55] LABS: Pleural Fluid WBC 385 /cmm
[2025-06-02 18:56] LABS: Pleural Fluid Mononuclear 95 %; Pleural Fluid Polynuclear 5 %
[2025-06-02 18:57] LABS: Pleural Fluid RBC 3000 /cmm
[2025-06-02 19:22] LABS: Lactate (Lactic Acid) 3.5 mMol/L (0.4-2.0)
[2025-06-02 19:26] LABS: Amylase,Pleural Fluid < 20 IU/L; Glucose,Pleural Fluid 24 mg/dL; LDH,Pleural Fluid 1454 IU/L; Protein Total,Pleural Fluid 3.0 g/dL
--- NOTE | 2025-06-02 21:53 | ESCONSULT_ITS ---
HPI Pulmonology Consult Data of Consult Requesting Physician: Jt Cuevas DO Primary Care Provider: Physician No Primary/Family Consult Narrative History of present illness: Patient is an 80 year old Moldovan speaking female with PMH significant for glaucoma, cataracts, and a recently discovered lytic left iliac lesion who presented to the ED with in a-fib that was discovered when she went into interventional radiology for a biopsy. Large left sided pleural effuson on chest CT and pulmonology asked to assist with drainage. Underlying malignancy yet to be identified but has a large mas sin left lung as well. Recent abdominal imaging does show moderate left sided basilar compression atelectasis/ pneumonia and moderate sized effusion. She was only seen in the ED and discharged without intervention at that time. Seen in ED with medicine team. She is stable on RA. No complaints of dyspnea or chest pain. She is in no distress at this time. Family contacted and expressed wishes to permit drainage for diagnostic purposes but decline chest tube placement due to concern for causing pain. Patient is weak and will need to lay down for procedue. cc:: cc: Jt Cuevas DO Meds Home Medications and Allergies Allergies Allergy/AdvReac Type Severity Reaction Status Date / Time No Known Allergies Allergy Verified 05/17/25 07:30 Exam Vital Signs Temp Pulse Resp BP Pulse Ox O2 Del Method 97.8 F 86 24 H 120/68 94 L Room Air 06/02/25 18:06 06/02/25 18:06 06/02/25 18:06 06/02/25 18:06 06/02/25 18:06 06/02/25 18:06 Narrative Exam GEN: NAD AAOX3 HEENT: moist mucus membranes, right eye catarct, EOMI CVS: S1/S2+ RRR PULM: no breath sounds on left ABD: soft, NT, ND, BS+ EXT: no clubbing or cyanosis NEURO: Diffusely weak, nonfocal grossly PSYCH: Flat affect, appropriate mood On bedside USG: large loculated pleural effusion with multiple pockets, undelrying atelectasis Physical Exam Completion Physical Exam Complete?: Yes Results - Eyeglass Lens Generator Labs 06/03/25 05:30 06/03/25 05:30 Labs: Short CBC 06/02/25 Range/Units 09:21 WBC 16.9 H (3.6-11.0) Thou/mm3 Hgb 13.2 (12.0-16.0) g/dL Hct 40.1 (36.0-46.0) % Plt Count 225 D (140-440) Thou/mm3 BMP 06/02/25 06/02/25 09:21 09:47 Sodium Cancelled 142 Potassium Cancelled 4.8 Chloride Cancelled 100 Carbon Dioxide Cancelled 24.4 BUN Cancelled 37 H Creatinine Cancelled 1.4 H Glucose Cancelled 104 Calcium Cancelled 9.4 Cardiac Enzymes 06/02/25 06/02/25 Range/Units 09:47 15:55 Troponin I 0.080 H* 0.073 H* (0.0-0.045) ng/mL Liver Function 06/02/25 06/02/25 Range/Units 09:21 09:47 Total Bilirubin Cancelled 1.1 AST Cancelled 61 H ALT Cancelled 16 Alkaline Phosphatase Cancelled 84 Albumin Cancelled 3.2 L Urine 06/02/25 Range/Units 10:10 Urine Color Yellow (Lt Yel-Yel) Urine Clarity Clear (Clear/Hazy) Urine pH 5.5 (5.0-7.0) Ur Specific [place] 1.022 (1.001-1.035) Urine Protein 1+ A (Neg - Trace) Urine Glucose (UA) Negative (Negative) Assessment & Plan Additional Plan Additional Plan: Loculated left pleural effusion Left upper lobe mass, likely malignancy Patient deemed appropriate candidate for diagnostic/ possible therapeutic thoracentesis Patient tolerated procedure well with no immediate complications Fluid analysis review this evening with residents, consistent with exudative process but WBC mostly monocytes No evidence of infection at this time warranting chest tube placement Await cytology at this time for definitive diagnosis Post-procedure PTC shows stable PTX suspect that there is component of trapped lung with large left upper lobe mass, no chest tube at this time as patient unlikelly be a candidate for pleurodesis and expect fluid to reaccumulate in coming days. Would not consider Pleurex in current scenario. If effusion does effect breathing this can be reconsidered though is nowak snot align with family wishes at this time. Monitor serial chest films overnight She is still on RA in no distress on my follow up this evening Remain available overnight in case of any issues Provider Notation Provider Notation: Although this document has been carefully reviewed, there may still be some phonetic and other typographical errors. These errors are purely grammatical due to imperfections in the software program and should not be construed in any way to compromise the substance of the patient's medical care during this visit. Thank you for the opportunity and privilege in assisting you with this patient's care and management.
--- NOTE | 2025-06-02 22:00 | XR_ITS ---
Examination: AP chest single view Technique: AP portable upright chest single view Date and time: June 02 2025 215 hrs., Comparison June 02, 2025 1813 hours Indications: Pneumothorax postthoracentesis today. Findings: 60% left pneumothorax with large pulmonary mass left upper lobe Trachea are mildly shifted to the right Severe osteopenia Moderate left pleural fluid Impression: Stable large left pneumothorax
[2025-06-02 22:14] LABS: Reflex Lactate? Y
[2025-06-02 22:50] LABS: Lactic Acid, 3 HR 3.4 mMol/L (0.4-2.0)
[2025-06-03] VITALS (14 sets, daily range): BP systolic 111–128; BP diastolic 56–80; PULSE 80–148; RESP 12–18; TEMP 35.7–37.4; O2SAT 92–95; BMI 13.6
[2025-06-03 01:23] LABS: Troponin I 0.078 ng/mL (0.0-0.045)
--- NOTE | 2025-06-03 05:47 | XR_ITS ---
Examination: AP chest single view Technique: AP portable semiupright chest single view Date and time: June 03, 2025, 0556 hrs., Comparison June 02, 2025 Indications: Pneumothorax post left thoracentesis Findings: Large mass in the left upper lobe with greater than 50% pneumothorax No significant cardiac enlargement. Right lung clear. Impression: CT chest without contrast follow-up would confirm significant left pneumothorax, as clinically warranted.
[2025-06-03 05:51] LABS: Basophils # (Auto) 0.0 Thou/mm3 (0.0-0.2); Basophils % (Auto) 0 % (0-2.5); Eosinophils # (Auto) 0.0 Thou/mm3 (0.0-0.5); Eosinophils % (Auto) 0 % (0-10); Hematocrit 36.8 % (36.0-46.0); Hemoglobin 12.0 g/dL (12.0-16.0); Immature Granulocytes Auto 0.11 Thou/mm3 (0.00-0.00); Lymphocytes # (Auto) 0.6 Thou/mm3 (1.0-4.8); Lymphocytes % (Auto) 5 % (10-50); Mean Corpuscular HGB Conc 32.6 g/dl (31.0-37.0); Mean Corpuscular Hemoglobin 26.9 pg (25.0-35.0); Mean Corpuscular Volume 83 fL (80-100); Monocytes # (Auto) 1.2 Thou/mm3 (0.0-0.8); Monocytes % (Auto) 9 % (0-12); Neutrophils # (Auto) 11.2 Thou/mm3 (1.8-7.7); Neutrophils % (Auto) 85 % (37-80); Nucleated Red Blood Cell # 0.00 Thou/mm3 (0.00-0.00); Nucleated Red Blood Cell % 0 /100 WBC (0); Platelet Count 189 Thou/mm3 (140-440); RDW Standard Deviation 53.7 fL (36.4-46.3); Red Blood Count 4.46 Miln/mm3 (4.00-5.20); White Blood Count 13.2 Thou/mm3 (3.6-11.0)
[2025-06-03 06:27] LABS: Alanine Aminotransferase 14 U/L (10-49); Albumin, Serum 2.9 gm/dL (3.4-4.8); Anion Gap 12 (7-16); Aspartate Amino Transferase 51 U/L (0-34); BUN/Creatinine Ratio 27 Ratio (12-20); Bilirubin,Total 0.8 mg/dL (0.3-1.2); Blood Urea Nitrogen 27 mg/dL (9-23); Calcium 9.0 mg/dL (8.3-10.6); Calcium (Corrected) 9.9 mg/dL (8.5-10.1); Carbon Dioxide 26.0 mMol/L (20.0-31.0); Chloride 104 mMol/L (98-107); Creatinine (Component) 1.0 mg/dL (0.6-1.3); Estimated Creatinine Clearance 21.0 mL/min (>60); Glucose 75 mg/dL (74-106); LDH (Lactate Dehydrogenase) 1038 U/L (120-246); Magnesium 2.1 mg/dL (1.6-2.6); Osmolality,Calculated 287 (275-295); Potassium 3.7 mMol/L (3.4-5.1); Sodium 142 mMol/L (136-145); Total Protein 5.1 gm/dL (5.7-8.2); eGFR 56 See Note
[2025-06-03 06:28] LABS: Albumin/Globulin Ratio 1.3 (1.2-2.2); Alkaline Phosphatase 71 U/L (46-116); Globulin 2.2 gm/dL (2.3-3.5)
[2025-06-03 08:56] LABS: pH,Body Fluid 7.5
[2025-06-03] MEDS: cefTRIAXone/D5w 1gm IV premix 1 GM/50 ML BAG IV (09:34)
--- NOTE | 2025-06-03 12:01 | PC.SS ---
BRIGHT CUTTER conducted bedside contact with the patient conduct initial assessment and to discuss discharge planning.? At bedside with patient was daughter Gabe Leger .? Patient is [place] Islander speaking.? Daughter provided information for assessment and discharge planning.? Patient resides at home with daughter. 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 Per daughter pending appointment with oncologist Dr. Boogie. ?Patient utilizes a wheelchair to assist with mobility.? Patient does not require the use of oxygen.? Patient requires assistance with the completion of ADL?s.? BRIGHT CUTTER discussed with patient?s daughter IHSS services.? Patient?s daughter declined IHSS option at current time.? Patient?s surrogate medical decision maker is daughter Gabe Leger.? Patient utilizes [facility] for PCP services. ?The patient does not possess any specialty providers.? The patient does not participate with dialysis nor does the patient possess diabetes.? Patient utilizes [facility] for medication services.? Discharge plan is for the patient to return home at the time of discharge.? BRIGHT CUTTER informed that goals of care discussion is pending.? Patient?s daughter discussed decision on patient pursing treatment is pending.? Patient in possession of coverage for transportation upon discharge.? Discharge plan will be for the patient to return home.? No discharge needs identified by the patient?s daughter that present time.? No further intervention required at this time, psychiatric social worker supervisor will be available to address any further concerns.? Next of Kin: Gabe Leger D/C Plan: Home
--- NOTE | 2025-06-03 14:04 | ESPR_ITS ---
<Statement entered by Taryn Golden MD - 06/03/25 15:29> Patient was admitted yesterday for management of pleural effusion with thoracentesis. Has a history ofLytic lesion of the left iliac that was to be biopsied. Patient was sent to ED when she was found to be in atrial fibrillation with RVR. Upon arrival, CT scan showed large mass in left lung with left-sided effusion. Underlying malignancy is unknown. Patient was stable on room air and family was contacted to discuss prognosis and possible interventions. They refused chest tube placement as they were concerned for patient to undergo any pain. They agreed for thoracentesis which was sent for diagnosis. Results this morning confirmed exudative effusion. Patient tolerated thoracentesis procedure well with removal of 1 L of fluid. Postprocedure x-ray showed a stable pneumothorax. Per pulmonology, fluid may reaccumulate in the upcoming days. Family was updated and amenable to have goals of care discussion. Will consult oncology Dr. Boogie for further recommendations as well. Plan for goals of care discussion with family, pain management, appetite stimulant, IV antibiotics. The patient's management plan was discussed with my attending physician Dr. Cuevas. Taryn Golden, PGY-2 Documentation for date of: 06/03/25 Subjective Subjective Interval history: Patient examined at bedside. NAOE. Patient is Branden speaking and history gathered by daughter at bedside. Began discussing goals of care with family, but it felt prudent to wait for oncology recommendations before official goals of care discussion. Diagnostic thoracentisis done yesterday, fluid analysis consistent with exudative effusion. Post procedure CXR demonstrated stable pneumothorax. A-fib RVR has not recurred. Consult with Dr. Boogie initated. FANY improved with IV fluids. Exam Vital Signs Temp Pulse Resp BP Pulse Ox O2 Del Method 96.2 F L 89 16 120/74 95 Room Air 06/03/25 11:33 06/03/25 11:45 06/03/25 11:45 06/03/25 11:33 06/03/25 11:45 06/03/25 11:33 Narrative Exam General: Elderly, frail, and cachectic appearing patient, no acute distress. HEENT: Right eye with opacification of the cornea. Left pupil responsive to light. Dry oral mucosa. Poor dentition with halitosis. There is white, thick film on the left side of the tongue that scrapes off easily without bleeding. There is also a large mass along the rightmost aspect of the submental region, bordering on the upper neck. This is firm but somewhat mobile. It is not painful. Cardiovascular: Normal S1 and S2. regular rate and rhythm with occasional ectopic beat. No murmur appreciated Respiratory: Lung sounds are absent or in the left lower lobe. Abdomen: Soft, nontender, not distended, Skin: Dry, no rashes or bruising Musculoskeletal: Non edematous lower extremities. 2+ bilateral pedal and radial pulses. Objective Labs 06/03/25 05:30 06/03/25 05:30 Labs: Laboratory Results - last 24 hr 06/02/25 06/02/25 06/02/25 15:55 18:00 18:55 WBC RBC Hgb Hct MCV MCH MCHC RDW Std Deviation Plt Count Neut % (Auto) Lymph % (Auto) [place] % (Auto) Eos % (Auto) Baso % (Auto) Neut # (Auto) Lymph # (Auto) [place] # (Auto) Eos # (Auto) Baso # (Auto) Immature Gran # (Auto) Absolute Nucleated RBC Immature Gran % Nucleated RBC % Sodium Potassium Chloride Carbon Dioxide Anion Gap BUN Creatinine Estim Creat Clear Calc eGFR BUN/Creatinine Ratio Glucose Calculated Osmolality Lactic Acid 3.5 H Calcium Corrected Calcium Magnesium Total Bilirubin AST ALT Alkaline Phosphatase Lactate Dehydrogenase Troponin I 0.073 H* Total Protein Albumin Globulin Albumin/Globulin Ratio Fluid pH 7.5 Pleural Color Yellow Pleural Appearance Hazy Pleural WBC 385 Pleural RBC 3000 Pleural Polynuclear WBC 5 Pleural Mononuclear WBC 95 Pleural Total Protein 3.0 Pleural LDH 1454 Pleural Glucose 24 Pleural Amylase < 20 06/02/25 06/03/25 06/03/25 22:28 00:22 05:30 WBC 13.2 H RBC 4.46 Hgb 12.0 Hct 36.8 MCV 83 MCH 26.9 MCHC 32.6 RDW Std Deviation 53.7 H Plt Count 189 D Neut % (Auto) 85 H Lymph % (Auto) 5 L [place] % (Auto) 9 Eos % (Auto) 0 Baso % (Auto) 0 Neut # (Auto) 11.2 H Lymph # (Auto) 0.6 L [place] # (Auto) 1.2 H Eos # (Auto) 0.0 Baso # (Auto) 0.0 Immature Gran # (Auto) 0.11 H Absolute Nucleated RBC 0.00 Immature Gran % 1 H Nucleated RBC % 0 Sodium 142 Potassium 3.7 D Chloride 104 Carbon Dioxide 26.0 Anion Gap 12 BUN 27 H Creatinine 1.0 Estim Creat Clear Calc 21.0 L eGFR 56 L BUN/Creatinine Ratio 27 H Glucose 75 Calculated Osmolality 287 Lactic Acid 3.4 H Calcium 9.0 Corrected Calcium 9.9 Magnesium 2.1 Total Bilirubin 0.8 AST 51 H ALT 14 Alkaline Phosphatase 71 Lactate Dehydrogenase 1038 H Troponin I 0.078 H* Total Protein 5.1 L Albumin 2.9 L Globulin 2.2 L Albumin/Globulin Ratio 1.3 Fluid pH Pleural Color Pleural Appearance Pleural WBC Pleural RBC Pleural Polynuclear WBC Pleural Mononuclear WBC Pleural Total Protein Pleural LDH Pleural Glucose Pleural Amylase Quality Measures Quality Measures sepsis Current suspected stage: ruled out Possible source: pulmonary Blood cultures ordered: yes Antibiotic ordered: Yes Advance care planning discussed with:: child Assessment & Plan Assessment Current Active Medications: Generic Name Dose Route Start Last Admin Trade Name Freq PRN Reason Stop Dose Admin Ceftriaxone Sodium/Dextrose 1 gm in 50 mls @ 100 mls/hr 06/02/25 14:27 06/03/25 09:34 Rocephin/D5w 1gm Iv Premix IV 06/09/25 14:26 100 mls/hr QDAY GAEL Administration Plan This is a 80 yof a recent history of weight loss, anorexia, and is being worked up for a left lytic iliac mass who presents to the ED from IR in a-fib with RVR. Patient was found to have a large left lung opacification. Admitted for management of pleural effusion with thoracentesis. Pleural effusion is likely secondary to malignancy. #Malignancy, unspecified #Mediastinal mass #Left pleural effusion #Pneumothorax #right neck mass Patient has been having weight loss, anorexia, has multiple masses throughout her body. CXR demonstrated a large opacification of the left lung with rightward mediastinal shift. CTA demonstrated a large mediastinal mass compressing the left pulmonary artery. Patient remains hemodynamically stable, still saturating well on room air, this is most likely a chronic process that is compensated. Biopsy was unable to be completed today due to her new a-fib. See below. Her high lactate is likely secondary to her malignancy as well. Differential includes septic shock from pneumonia but is less likely given her hemodynamic stability. See below. Thoracentesis completed, pleural fluid consistent with exudative effusion likely secondary to malignancy. Post procedure stable pneumothorax noted, patient remains hemodynamically stable. Per pulmonology, fluid is likely to recur, and patient is not a candidate for pleurodesis due to incongruence with patient/family's wishes. -Consulted oncology, appreciate recommendations. Will plan on goals of care discussion after consultation. -Monitor O2 saturation and respiratory status. -am CXR -Consider revisiting pleurodesis if effusion begins to effect respiratory status. -Heparin for DVT prophylaxis. #paroxysmal A-fib with RVR Patient has no history of a-fib in the past. Newly diagnosed today. She has multiple possible causes for her a-fib today, including malignancy or pneumonia. Responded well to diltiazem 5 mg x1. Rate was controlled at the time of exam. [id number] demonstrates 4.6% risk of stroke/TIA/systemic embolism per year and HAS-BLED demonstrated 3.4% risk of bleeding. Patient is likely hypercoagulable due to extensive malignancy. Troponins elevated but stable, no STEMI or ST depression on EKG, likely related to compressive mass within the mediastinum. In NSR on 06/03, though this is likely to return if pleural fluid recurs. - Moniter on tele. - If the heart rate climbs, will consider addition of metoprolol. - Anticoagulation held at this point, patient is not in a-fib. #Anorexia #Malnutrition #dysphagia BMI 13. Possible element of dysphagia from throat mass vs low appetite due to severe illness. RD recs: pureed and mildy thickened liquids. Patient has trouble with PO meds. -encouraged bringing food from home that she enjoys. -dysphagia 1 diet #FANY Baseline Cr around 1.0, 1.4 today with BUN of 37. Likely prerenal from perpetual dehydration and poor oral intake. Renal function improved on 06/03 with IV fluids, Cr at 1.0. -avoid nephrotoxic agents - renally dosed medications -daily CMP #Pneumonia Patient had elevated white count of 16 and procal of 1.03. Right sided pneumonia seen on CT. White count improving to 13 on 06/03. Patient remains afebrile and hemodynamically stable. - Ceftriaxone started 06/02, continue at least 5 day course. - Monitor Respiratory and O2 status, currently on RA and satting well. #Abnormal thyroid studies Most likely euthyroid sick syndrome as this is a new finding. Patient does not have a history of thyroid disease and thyroid exam was unremarkable. - moniter for now, track vitals - may recheck thyroid function tests in a couple days. Attending Provider Attestation/Addendum On an inpatient basis I have discussed and was present for the essential components of the history, physical examination, diagnosis, and treatment plan with the resident. I agree with the patient's care as documented by the resident and amended herein by me. Bebeto Cuevas, DO. Although this document has been carefully reviewed, there may still be some phonetic and other typographical errors. These errors are purely grammatical due to imperfections in the software program and should not be construed in any way to compromise the substance of the patient's medical care during this visit. Patient seen and evaluated this AM. No acute events overnight,, significant labs included WBC of 13, creatinine 1, BUN 27 today. Thoracentesis performed yesterday on 06/02 removing approximately 1 L fluid which was determined to be exudative per lights criteria. Cytology and cultures are pending. Patient likely has extensive metastatic disease, oncology, Dr. Boogie has been consulted, once we receive recommendations, we will likely continue goals of care with the patient's family. Will attempt appetite stimulant as the patient has definitely lost weight and demonstrating FTT, speech therapy did evaluate the patient recommending mildly thick liquids with meals. Patient likely has mass effect from the neck mass making it difficult to swallow given the sensation that food is stuck . Will continue to monitor closely, appreciate specialist recommendations, patient will remain on ceftriaxone for now, for the patient's atrial fibrillation which is likely paroxysmal, patient should be on anticoagulation, however her daughter will consider this, we did bring to her attention the risks versus benefits. Will continue to monitor close
--- NOTE | 2025-06-03 14:20 | PC.SS ---
Rounding Note: Plan is to conduct Goals of Care meeting following Dr. Boogie's recommendations. GOC to be conducted tomorrow.
[2025-06-03] MEDS: HEPARIN SOD INJ 5000 UNIT/ML VIAL SC (17:42)
--- NOTE | 2025-06-03 21:17 | EKG_ITS ---
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
[2025-06-03] MEDS: KETOROLAC INJ 30 MG/ML VIAL IVP (22:10)
[2025-06-03] MEDS: MELATONIN 3 MG TABLET PO (22:10)
[2025-06-03] MEDS: AMIODARONE 150 MG IVPB 150 MG/100 ML BAG 600 MG IV (22:12)
[2025-06-03] MEDS: AMIODARONE 360 MG IVPB 360 MG/200 ML BAG 33.333 MG IV (22:36)
[2025-06-04] VITALS: BP 110/78; PULSE 123; PULSE 130; RESP 19; TEMP 36.8; O2SAT 96
[2025-06-04] MEDS: MORPHINE SULF INJ 4 MG/ML VIAL 1 MG IVP (01:24)
[2025-06-04 04:00] VITALS: BP 108/70; PULSE 74; PULSE 75; RESP 16; TEMP 36.7; O2SAT 94
[2025-06-04] MEDS: HEPARIN SOD INJ 5000 UNIT/ML VIAL SC (05:29)
[2025-06-04 05:40] VITALS: BMI 13.6
[2025-06-04 05:54] LABS: Basophils # (Auto) 0.0 Thou/mm3 (0.0-0.2); Basophils % (Auto) 0 % (0-2.5); Eosinophils # (Auto) 0.0 Thou/mm3 (0.0-0.5); Eosinophils % (Auto) 0 % (0-10); Hematocrit 37.0 % (36.0-46.0); Hemoglobin 12.2 g/dL (12.0-16.0); Immature Granulocytes Auto 0.08 Thou/mm3 (0.00-0.00); Lymphocytes # (Auto) 0.5 Thou/mm3 (1.0-4.8); Lymphocytes % (Auto) 5 % (10-50); Mean Corpuscular HGB Conc 33.0 g/dl (31.0-37.0); Mean Corpuscular Hemoglobin 27.2 pg (25.0-35.0); Mean Corpuscular Volume 83 fL (80-100); Monocytes # (Auto) 1.0 Thou/mm3 (0.0-0.8); Monocytes % (Auto) 10 % (0-12); Neutrophils # (Auto) 8.6 Thou/mm3 (1.8-7.7); Neutrophils % (Auto) 84 % (37-80); Nucleated Red Blood Cell # 0.00 Thou/mm3 (0.00-0.00); Nucleated Red Blood Cell % 0 /100 WBC (0); Platelet Count 180 Thou/mm3 (140-440); RDW Standard Deviation 54.0 fL (36.4-46.3); Red Blood Count 4.48 Miln/mm3 (4.00-5.20); White Blood Count 10.2 Thou/mm3 (3.6-11.0)
--- NOTE | 2025-06-04 06:00 | XR_ITS ---
Examination: AP chest single view Technique one AP portable semiupright chest single view Date and time: June 04, 2025, 0650 hrs., Comparison 06/03/2025 Indications: Pneumothorax postthoracentesis Findings: Again noted pulmonary mass with consolidation in the left upper lobe Large left pneumothorax, estimated 70% on the current study Moderate to large left pleural fluid Minor prominence cardiac contour Right lung clear with vascular congestion, mild to moderate Impression: 70% left pneumothorax
[2025-06-04 06:14] VITALS: BP 115/82; PULSE 71
[2025-06-04] MEDS: AMIODARONE 360 MG IVPB 360 MG/200 ML BAG 16.667 MG IV (06:14)
[2025-06-04 06:36] LABS: Alanine Aminotransferase 10 U/L (10-49); Albumin, Serum 2.6 gm/dL (3.4-4.8); Albumin/Globulin Ratio 1.2 (1.2-2.2); Alkaline Phosphatase 68 U/L (46-116); Anion Gap 15 (7-16); Aspartate Amino Transferase 54 U/L (0-34); BUN/Creatinine Ratio 25 Ratio (12-20); Bilirubin,Total 0.6 mg/dL (0.3-1.2); Blood Urea Nitrogen 28 mg/dL (9-23); Calcium 8.7 mg/dL (8.3-10.6); Calcium (Corrected) 9.8 mg/dL (8.5-10.1); Carbon Dioxide 25.1 mMol/L (20.0-31.0); Chloride 104 mMol/L (98-107); Creatinine (Component) 1.1 mg/dL (0.6-1.3); Estimated Creatinine Clearance 19.1 mL/min (>60); Globulin 2.1 gm/dL (2.3-3.5); Glucose 76 mg/dL (74-106); Magnesium 2.1 mg/dL (1.6-2.6); Osmolality,Calculated 291 (275-295); Potassium 3.5 mMol/L (3.4-5.1); Sodium 144 mMol/L (136-145); Total Protein 4.7 gm/dL (5.7-8.2); eGFR 50 See Note
[2025-06-04 08:00] VITALS: BP 113/61; PULSE 71; PULSE 73; RESP 13; TEMP 36.2; O2SAT 96
--- NOTE | 2025-06-04 08:20 | PD.ONCCONS ---
HPI Data of Consult Requesting Physician: Jt Cuevas DO Primary Care Provider: Physician No Primary/Family Consult Narrative Reason for consult: Likely stage IV cancer History of present illness: 80-year-old Laotian lady admitted with cardiac arrhythmia and shortness of breath. Chest abdomen pelvis CT 06/02/2025, 5 center mass lateral to the right side of the neck along with large mediastinal mass compressing the left main pulmonary artery. There was large left pleural effusion and right lung pneumonia as well as thickening of the gastric mucosa and pathologic compression fracture T12. Thoracentesis was performed cytology results not immediately available. Post thoracentesis pneumothorax left estimated 70%. Daughter states that patient has had general decline over the past few months with significant weight loss. cc:: cc: Jt Cuevas DO Past Medical History Social History SOCIAL: Lives with daughter and grandchildren history of smoking quit several years ago. Past Medical History Comments PMH COMMENT: Cataracts glaucoma blindness right eye Meds Home Medications and Allergies Allergies Allergy/AdvReac Type Severity Reaction Status Date / Time No Known Allergies Allergy Verified 05/17/25 07:30 Exam Vital Signs Temp Pulse Resp BP Pulse Ox O2 Del Method 97.1 F 73 13 113/61 96 Room Air 06/04/25 08:00 06/04/25 08:00 06/04/25 08:00 06/04/25 08:00 06/04/25 08:00 06/04/25 08:00 Narrative Exam Patient lying with no obvious distress Results Labs 06/04/25 05:09 06/04/25 05:09 Labs: Short CBC 06/04/25 Range/Units 05:09 WBC 10.2 (3.6-11.0) Thou/mm3 Hgb 12.2 (12.0-16.0) g/dL Hct 37.0 (36.0-46.0) % Plt Count 180 (140-440) Thou/mm3 BMP 06/04/25 05:09 Sodium 144 Potassium 3.5 Chloride 104 Carbon Dioxide 25.1 BUN 28 H Creatinine 1.1 Glucose 76 Calcium 8.7 Liver Function 06/04/25 Range/Units 05:09 Total Bilirubin 0.6 (0.3-1.2) mg/dL AST 54 H (0-34) U/L ALT 10 (10-49) U/L Alkaline Phosphatase 68 (46-116) U/L Albumin 2.6 L (3.4-4.8) gm/dL Assessment and Plan Additional Assessment & Plan Additional Plan: 1. 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 2 considering advanced age and low PPS of 30%, likely has only a few days to live which I discussed with the daughter. 3. Daughter would like to have her sent home and agrees with hospice care as the best choice for the patient and family. 4. Will contact a local hospice agency as well as group social worker.
--- NOTE | 2025-06-04 09:52 | PC.SS ---
HAND FRETTED INSTRUMENT MAKER confirmed with patient's daughter, Gabe Leger; to transition the patient home with hospice services. Daughter identified [facility] as preferred agency. HAND FRETTED INSTRUMENT MAKER confirmed with resident and bedside nurse discharge disposition.
--- NOTE | 2025-06-04 09:53 | PC.SS ---
PROFESSIONAL ORGANIZER submitted hospice referral on [facility]. Requested DME: hospital bed and 3-1 commode. PROFESSIONAL ORGANIZER to schedule ambulance transport.
--- NOTE | 2025-06-04 09:54 | PC.SS ---
JUNIOR DESIGNER initiated transport via [facility]. Reference #[id number]. Preferred vendor [employer]. Awaiting response.
--- NOTE | 2025-06-04 11:45 | PD.RESPRO ---
Documentation for date of: 06/04/25 Exam Vital Signs Temp Pulse Resp BP Pulse Ox O2 Del Method 97.1 F 73 13 113/61 96 Room Air 06/04/25 08:00 06/04/25 08:00 06/04/25 08:00 06/04/25 08:00 06/04/25 08:00 06/04/25 08:00 Objective Labs 06/04/25 05:09 06/04/25 05:09 Labs: Laboratory Results - last 24 hr 06/04/25 05:09 WBC 10.2 RBC 4.48 Hgb 12.2 Hct 37.0 MCV 83 MCH 27.2 MCHC 33.0 RDW Std Deviation 54.0 H Plt Count 180 Neut % (Auto) 84 H Lymph % (Auto) 5 L [place] % (Auto) 10 Eos % (Auto) 0 Baso % (Auto) 0 Neut # (Auto) 8.6 H Lymph # (Auto) 0.5 L [place] # (Auto) 1.0 H Eos # (Auto) 0.0 Baso # (Auto) 0.0 Immature Gran # (Auto) 0.08 H Absolute Nucleated RBC 0.00 Immature Gran % 1 H Nucleated RBC % 0 Sodium 144 Potassium 3.5 Chloride 104 Carbon Dioxide 25.1 Anion Gap 15 BUN 28 H Creatinine 1.1 Estim Creat Clear Calc 19.1 L eGFR 50 L BUN/Creatinine Ratio 25 H Glucose 76 Calculated Osmolality 291 Calcium 8.7 Corrected Calcium 9.8 Magnesium 2.1 Total Bilirubin 0.6 AST 54 H ALT 10 Alkaline Phosphatase 68 Total Protein 4.7 L Albumin 2.6 L Globulin 2.1 L Albumin/Globulin Ratio 1.2 Quality Measures Quality Measures sepsis Possible source: pulmonary Blood cultures ordered: yes Assessment & Plan Assessment Current Active Medications: Generic Name Dose Route Start Last Admin Trade Name Freq PRN Reason Stop Dose Admin Heparin Sodium (Porcine) 5,000 unit 06/03/25 16:15 06/04/25 05:29 Heparin Sod Inj 5000 Unit/Ml Vial SC 06/17/25 16:14 5,000 unit Q8HR GAEL Administration Ceftriaxone Sodium/Dextrose 1 gm in 50 mls @ 100 mls/hr 06/02/25 14:27 06/04/25 10:07 Rocephin/D5w 1gm Iv Premix IV 06/09/25 14:26 Not Given QDAY GAEL Amiodarone HCl/Dextrose 360 mg in 200 mls @ 16.667 mls/hr 06/03/25 21:45 06/04/25 06:14 Nexterone Ivpb IV 06/04/25 21:44 16.667 mls/hr .Q12H GAEL Administration Ketorolac Tromethamine 30 mg 06/03/25 15:44 06/03/25 22:10 Ketorolac Inj 30 Mg/Ml Vial IVP 06/08/25 15:43 30 mg Q6HR PRN Administration Pain 7-10
[2025-06-04 11:58] VITALS: PULSE 87; RESP 18; O2SAT 94
[2025-06-04 12:00] VITALS: BP 111/57; PULSE 76; PULSE 83; RESP 17; TEMP 36.4; O2SAT 95
--- NOTE | 2025-06-04 12:47 | PC.SS ---
[employer] received phone call from [place] Rachael serrano ; stating that DME to be delivered around 02:00 pm today.
--- NOTE | 2025-06-04 13:31 | PC.SS ---
Transport scheduled for 3:00 pm today. [place] to provide transportation. PIPE BUFFER updated hospice agency, bedside nurse, patient's family.
--- NOTE | 2025-06-04 13:49 | ESDS_ITS ---
<Statement entered by Taryn Golden MD - 06/04/25 16:25> 80-year-old [place] lady admitted with cardiac arrhythmia and shortness of breath. Chest abdomen pelvis CT 06/02/2025, 5 center mass lateral to the right side of the neck along with large mediastinal mass compressing the left main pulmonary artery. There was large left pleural effusion and right lung pneumonia as well as thickening of the gastric mucosa and pathologic compression fracture T12. Thoracentesis was performed cytology results not immediately available. Post thoracentesis pneumothorax left estimated 70%. Daughter states that patient has had general decline over the past few months with significant weight loss. Oncology Dr Boogie and pulmonolgy Dr. Baker were consulted. Goals of care discussion held with family who agreed to pursue hospice at home. Note reviewed, I agree with most of its contents and agree with the patient's care as documented by Dr. Mcdonald. The patient's management plan was discussed with my attending physician Dr. Cuevas. Taryn Golden, PGY-2 Planned Discharge Date 06/04/25 DS: Providers Provider Date of admission: 06/02/25 12:15 Primary care physician: Physician No Primary/Family Admitting Provider: Jt Cuevas DO Attending Provider on Admission: Jt Cuevas DO Consults: 06/02/25 14:20 Referral Speech Therapy Urgent Comment: 06/02/25 14:25 Consult to Pulmonology Routine Comment: chest tube Consulting Provider: Edenilson Baker I 06/03/25 09:02 Consult to Oncology Routine Comment: Consulting Provider: Octaviano Boogie 06/04/25 08:58 Referral Hospice Routine Comment: Attending Provider on DC: Jt Cuevas DO Discharging Provider: Aleksandr Marcos MD DS: Diagnosis Problem List Completed Was Problem List Reviewed/Reconciled?: Yes Hospital Course Hospital Course Hospital course: 80-year-old [place] lady admitted with cardiac arrhythmia and shortness of breath. Chest abdomen pelvis CT 06/02/2025, 5 center mass lateral to the right side of the neck along with large mediastinal mass compressing the left main pulmonary artery. There was large left pleural effusion and right lung pneumonia as well as thickening of the gastric mucosa and pathologic compression fracture T12. Thoracentesis was performed cytology results not immediately available. Post thoracentesis pneumothorax left estimated 70%. Daughter states that patient has had general decline over the past few months with significant weight loss. ==== 80 yo [place] woman with a h/o glaucoma, cigarrette smoking quit 10 years ago, and recent history of lytic left iliac mass who presented with a-fib which was discovered when she went for bx of the lesion in IR. A-fib responded to 1 dose of diltiazem but she was found to have a large left pleural effusion and mediastinal mass, and right sided pneumonia on CXR and CTA 06/02/2025. Antibiotics were started, diagnostic thoracentesis was pursued and complicated by pneumothorax. Patient remained hemodynamically stable throughout hospital day 2 (06/03). Results of pleural studies were consistent with exudative effusion, likely secondary to malignancy. Oncology was consulted. 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 Dr. Boogie with oncology spoke with the patient and her daughter at bedside, explained the extent of her malignancy, prognosticated a 2 week life expectancy and recommended hospice. They agreed to go home with hospice and changed code status to DNR upon goals of care conversation. Unnecessary medications were discontinued. Patient was discharged with home hospice in stable condition. Discharge Diagnoses #Malignancy, metastatic, unspecified #Mediastinal mass #Left pleural effusion #Pneumothorax #right neck mass #paroxysmal A-fib with RVR #Anorexia #Malnutrition #dysphagia #Pneumonia Time Spent with Patient Time attestation: Total time spent providing and/or coordinating discharge services: Time spent: Greater than 30 minutes Exam Vital Signs Temp Pulse Resp BP Pulse Ox O2 Del Method 97.6 F 76 17 111/57 L 95 Room Air 06/04/25 12:00 06/04/25 12:00 06/04/25 12:06/04/25 12:00 06/04/25 12:06/04/25 12:00 Narrative Exam General: Elderly, frail, and cachectic appearing patient, no acute distress. HEENT: Right eye with opacification of the cornea. Left pupil responsive to light. Dry oral mucosa. Poor dentition with halitosis. There is white, thick film on the left side of the tongue that scrapes off easily without bleeding. There is also a large mass along the rightmost aspect of the submental region, bordering on the upper neck. This is firm but somewhat mobile. It is not painful. Cardiovascular: Normal S1 and S2. regular rate and rhythm with occasional ectopic beat. No murmur appreciated Respiratory: Lung sounds are absent or in the left lower lobe. Abdomen: Soft, nontender, not distended, Skin: Dry, no rashes or bruising Musculoskeletal: Non edematous lower extremities. 2+ bilateral pedal and radial pulses. Discharge Plan Plan Patient Disposition: Home w/HOSPICE Patient condition on transfer: Stable Prescriptions/Referrals Prescriptions/Med Rec: Continued hydrocodone-acetaminophen 10-325 mg tablet 1 tab PO BID MDD 2 PRN (Reason: pain) Qty: 20 0RF Referrals: Octaviano Boogie MD [Physician, Radiation Oncology] No Primary/Family,Physician [Primary Care Provider] Patient/Caregiver Discharge Instructions Other Discharge Activity Instructions:: Encourage patient to eat and drink as much as she can tolerate. Keep patient comfortable. Take pain meds as needed. Education Materials: Hospice The Importance of ..., For Caregivers: Coping Tips, ED Pleural Effusion, ED Pneumonia (Adult) Print Language: Branden Stand Alone Forms: [employer] Award Info., Patient Portal Info Letter Discharge Order Discharge Orders: Discharge (Routine); Ordered 06/04/25 Ordered By: Taryn Golden Quality Discharge Quality Measures VTE prophylaxis MD Attestestation MD Attestation I have discussed and was present for the essential components of the discharge history, physical examination, diagnosis, and discharge treatment plan with the resident. I agree with the patient's discharge care as documented by the resident and amended herein by me. Bebeto Cuevas, DO. Patient will be discharged to hospice, and home. Patient's daughter was at bedside and everything was explained. Unfortunately the patient likely has metastatic cancer with very large mass lesions feeling her chest cavity, per o ncology likely only has weeks to live. This was explained to the family, all questions answered satisfactorily prior to discharge. Although this document has been carefully reviewed, there may still be some phonetic and other typographical errors. These errors are purely grammatical due to imperfections in the software program and should not be construed in any way to compromise the substance of the patient's medical care during this visit.
--- NOTE | 2025-06-04 14:32 | PC.NURSE ---
patient gpong home on hospice discharge instructions given to daughter Kayden over phone
== END 2025-06-04 15:02 | disposition hospice, home (50) | DRG 308 ==
LOC: SERX 11:59 → SERHOLD 12:56 → S2NX 21:24
PROVIDERS: Student in an Organized Health Care Education/Training Program; Admitting Provider Student in an Organized Health Care Education/Training Program; Emergency Provider Emergency Medicine; Visit Provider Student in an Organized Health Care Education/Training Program
DX: I48.91 Unspecified atrial fibrillation (principal); J18.9 Pneumonia, unspecified organism; R64 Cachexia; Z68.1 Body mass index [BMI] 19.9 or less, adult; J90 Pleural effusion, not elsewhere classified; E46 Unspecified protein-calorie malnutrition; N17.9 Acute kidney failure, unspecified; E87.20 Acidosis, unspecified; J95.811 Postprocedural pneumothorax; M48.54XA Collapsed vertebra, not elsewhere classified, thoracic region, initial encounter for fracture; I48.0 Paroxysmal atrial fibrillation; E03.9 Hypothyroidism, unspecified; H54.61 Unqualified visual loss, right eye, normal vision left eye; R22.1 Localized swelling, mass and lump, neck; E07.81 Sick-euthyroid syndrome; C80.1 Malignant (primary) neoplasm, unspecified; Z87.891 Personal history of nicotine dependence; R13.10 Dysphagia, unspecified; R62.7 Adult failure to thrive; Z66 Do not resuscitate; Z79.891 Long term (current) use of opiate analgesic
CPT/HCPCS: 36415; 71045; 71275; 80053; 81001; 82150; 82565; 82945; 83605; 83615; 83735; 83880; 83986; 84100; 84145; 84157; 84439; 84443; 84484; 84520; 85025; 85610; 85730; 87040; 87070; 87075; 87086; 87205; 87811; 89051; 92526; 92610; 93005; 96361; 96365; 96366; 99285; A4649; J0283; J0692; J0696; J1200; J1644; J1885; J2270; J3490; J7050; J7120; Q9967; A9270

== ENCOUNTER → 2025-06-02 | Outpatient (CLI) | payer MEDICARE, MEDICAID, SELFPAY ==
[2025-05-31 10:15] VITALS: BMI 13.1
[2025-06-01 12:55] LABS: Basophils # (Auto) 0.0 Thou/mm3 (0.0-0.2); Basophils % (Auto) 0 % (0-2.5); Eosinophils # (Auto) 0.0 Thou/mm3 (0.0-0.5); Eosinophils % (Auto) 0 % (0-10); Hematocrit 40.4 % (36.0-46.0); Hemoglobin 13.4 g/dL (12.0-16.0); Immature Granulocytes Auto 0.18 Thou/mm3 (0.00-0.00); Lymphocytes # (Auto) 0.7 Thou/mm3 (1.0-4.8); Lymphocytes % (Auto) 4 % (10-50); Mean Corpuscular HGB Conc 33.2 g/dl (31.0-37.0); Mean Corpuscular Hemoglobin 27.2 pg (25.0-35.0); Mean Corpuscular Volume 82 fL (80-100); Monocytes # (Auto) 1.3 Thou/mm3 (0.0-0.8); Monocytes % (Auto) 7 % (0-12); Neutrophils # (Auto) 17.1 Thou/mm3 (1.8-7.7); Neutrophils % (Auto) 89 % (37-80); Nucleated Red Blood Cell # 0.00 Thou/mm3 (0.00-0.00); Nucleated Red Blood Cell % 0 /100 WBC (0); Platelet Count 324 Thou/mm3 (140-440); RDW Standard Deviation 53.7 fL (36.4-46.3); Red Blood Count 4.92 Miln/mm3 (4.00-5.20); White Blood Count 19.3 Thou/mm3 (3.6-11.0)
[2025-06-01 13:15] LABS: Blood Urea Nitrogen 47 mg/dL (9-23); Creatinine (Component) 1.4 mg/dL (0.6-1.3); Estimated Creatinine Clearance 14.4 mL/min (>60); eGFR 38 See Note
[2025-06-01 13:22] LABS: INR 0.9 (0.9-1.3); Partial Thromboplastin Time 23.7 Seconds (22.0-36.0); Prothrombin Time 10.2 Seconds (9.0-12.2)
[2025-06-02 08:33] VITALS: BP 104/76; PULSE 137; RESP 16; TEMP 36.6; O2SAT 95
--- NOTE | 2025-06-02 08:53 | PC.NURSE ---
Patient came to [facility] with daughter Gabe, once patient changed out and we connected her to the vital machine we noticed patient was very tachy in the 130-140's and Strip looked like A-Fib RVR i then called the ER charge nurse (Mariam) to explain the situation, she said i can take patient to the ER so they can assess and monitor her, i asked Mariam if we should put an IV in and she said that was fine. Patient taken to bed #12 and bedside report was given to Kailyn YOUNGER
== END | disposition home or self-care (01) ==
PROVIDERS: Radiology Diagnostic Radiology; PCP Family Medicine; Referring Provider Internal Medicine; Visit Provider Internal Medicine
DX: Z53.8 Procedure and treatment not carried out for other reasons (principal); Z01.812 Encounter for preprocedural laboratory examination
CPT/HCPCS: 36415; 82565; 84520; 85025; 85610; 85730